=== PATIENT | male | born 1955 | race African-American/Black ===

== ENCOUNTER 2017-01-21 15:54 | Emergency (ER) | payer MEDICAID ==
[~2017-01-21] VITALS: Ht 170.2 cm; Wt 74.0 kg
[~2017-01-21 15:54] MED LIST: ASA; GABA-290 PO; METFORMIN; NAPROSYN; TRAMADOL
[2017-01-21] MEDS ORDERED: KETOROLAC 60MG/2ML VIAL IM ONE (19:15)
[2017-01-21] MEDS ORDERED: CYCLOBENZAPRINE 10MG TABLET PO ONE (19:30)
[2017-01-21 20:25] LABS: CLARITY URINE CLEAR (CLEAR); COLOR URINE YELLOW (YELLOW); GLUCOSE URINE TRACE (NEGATIVE); KETONES URINE NEGATIVE (NEGATIVE); LEUKOCYTE ESTERASE URINE NEGATIVE (NEGATIVE); NITRITE URINE NEGATIVE (NEGATIVE); OCCULT BLOOD URINE 1+ (NEGATIVE); PROTEIN URINE 3+ (NEGATIVE); SPECIFIC GRAVITY URINE 1.021 (1.005-1.030); UROBILINOGEN URINE 0.2 E.U./dL (0.2-1.0)
[2017-01-21 21:10] VITALS: BP 150/70
== END 2017-01-21 21:11 | disposition home or self-care (01) ==
LOC: ER 15:54
DX: M54.12 Radiculopathy, cervical region (principal); M54.16 Radiculopathy, lumbar region; E11.9 Type 2 diabetes mellitus without complications; I10 Essential (primary) hypertension
CPT/HCPCS: 74176; 81001; 96372; 99285; J1885

== ENCOUNTER 2017-08-01 12:00 | Emergency (ER) | payer MEDICAID ==
[~2017-08-01] VITALS: Ht 172.7 cm; Wt 80.0 kg
[2017-08-01 19:47] VITALS: BP 144/76
== END 2017-08-01 21:04 | disposition home or self-care (01) ==
LOC: ER 13:44
DX: Z48.01 Encounter for change or removal of surgical wound dressing (principal); M25.511 Pain in right shoulder; L29.9 Pruritus, unspecified; I10 Essential (primary) hypertension; E11.9 Type 2 diabetes mellitus without complications; Z79.84 Long term (current) use of oral hypoglycemic drugs
CPT/HCPCS: 99283

== ENCOUNTER 2018-04-19 20:38 | Inpatient (IN) | payer MEDICAID ==
[~2018-04-19] VITALS: Ht 162.6 cm; Wt 82.6 kg
[2018-04-19] MEDS ORDERED: SITA100T11 PO (21:25)
[2018-04-19] MEDS ORDERED: NAPR-681 PO (21:25)
[2018-04-19] MEDS ORDERED: HYDR-4001 PO (21:25)
[2018-04-19] MEDS ORDERED: CIPR500S3 MT (21:25)
[2018-04-19] MEDS ORDERED: GABA800T97 PO (21:25)
[2018-04-19] MEDS ORDERED: ACET500C42 PO (21:25)
[2018-04-19] MEDS ORDERED: CEPH500C2 PO (21:25)
[2018-04-19] MEDS ORDERED: CIPR3.5O RIGHTEYE (21:30)
[2018-04-19] MEDS ORDERED: KETO5DRO OP (21:30)
[2018-04-19 23:17] LABS: BASOPHILS % 1.3 % (0.0-2.0); EOSINOPHILS % 0.5 % (0.0-5.0); HEMATOCRIT. 39.5 % (42.0-52.0); HEMOGLOBIN. 13.6 g/dL (14.0-18.0); LYMPHOCYTES % 44.9 % (20.0-50.0); MEAN CORPUSCULAR HEMOGLOBIN 29.9 pg (28.0-32.0); MEAN CORPUSCULAR VOLUME 86.9 fL (80.0-94.0); MEAN PLATELET VOLUME 8.7 fl (7.4-10.4); MONOCYTES % 5.7 % (2.0-8.0); NEUTROPHILS % 47.6 % (40.0-76.0); PLATELET 228 x1000/uL (130-400); RED BLOOD CELL COUNT 4.54 mill/uL (4.7-6.1); RED CELL DISTRIBUTION WIDTH 13.2 % (11.6-14.6)
[2018-04-19 23:25] LABS: CLARITY URINE CLEAR (CLEAR); COLOR URINE YELLOW (YELLOW); KETONES URINE NEGATIVE (NEGATIVE); LEUKOCYTE ESTERASE URINE NEGATIVE (NEGATIVE); NITRITE URINE NEGATIVE (NEGATIVE); OCCULT BLOOD URINE TRACE (NEGATIVE); PROTEIN URINE 3+ (NEGATIVE); SPECIFIC GRAVITY URINE 1.011 (1.005-1.030)
[2018-04-19 23:25] LABS: CHLORIDE 108 mEq/L (98-107); ETHANOL BLOOD < 10 mg/dL
[2018-04-19 23:40] LABS: *AMPHETAMINES SCREEN URINE NEGATIVE (NEGATIVE); *BARBITURATES SCREEN URINE NEGATIVE (NEGATIVE); *BENZODIAZEPINES SCREEN URINE NEGATIVE (NEGATIVE); METHADONE URINE SCREEN NEGATIVE (NEGATIVE)
[2018-04-19 23:44] LABS: *COCAINE SCREEN URINE NEGATIVE (NEGATIVE); CANNABINOID URINE SCREEN NEGATIVE (NEGATIVE); OPIATES URINE SCREEN NEGATIVE (NEGATIVE); PHENCYCLIDINE URINE SCREEN NEGATIVE (NEGATIVE)
[2018-04-20] VITALS (58 sets, daily range): BP systolic 115–195; BP diastolic 45–120
[2018-04-20] MEDS ORDERED: ASPIRIN 300MG SUPP PR ONE (01:00)
[2018-04-20] MEDS ORDERED: CLONIDINE 0.1MG TABLET PO PRN (04:00)
[2018-04-20] MEDS ORDERED: CIPR500S3 PO (04:51)
[2018-04-20] MEDS: AMLODIPINE 10MG TABLET PO SCH ×2 (05:37→05:43)
[2018-04-20] MEDS: BENAZEPRIL 10MG TABLET PO SCH ×2 (05:38→05:43)
[2018-04-20] MEDS: HYDRALAZINE 20MG/ML VIAL IV PRN ×2 (06:22→11:27)
[2018-04-20] MEDS: BLOOD SUGAR DIAGNOSTIC STRIP TEST SCH ×4 (07:07→21:11)
[2018-04-20] MEDS: INSULIN LISPRO 100 UNITS/ML SUBCUT SCH ×4 (08:10→21:00)
[2018-04-20 09:32] LABS: BASOPHILS % 1.9 % (0.0-2.0); EOSINOPHILS % 0.4 % (0.0-5.0); HEMATOCRIT. 39.5 % (42.0-52.0); HEMOGLOBIN. 13.7 g/dL (14.0-18.0); LYMPHOCYTES % 30.6 % (20.0-50.0); MEAN CORPUSCULAR VOLUME 86.3 fL (80.0-94.0); MEAN PLATELET VOLUME 8.8 fl (7.4-10.4); MONOCYTES % 4.9 % (2.0-8.0); NEUTROPHILS % 62.2 % (40.0-76.0); PLATELET 214 x1000/uL (130-400); RED BLOOD CELL COUNT 4.57 mill/uL (4.7-6.1)
[2018-04-20 09:58] LABS: CHLORIDE 110 mEq/L (98-107)
[2018-04-20 10:05] LABS: HDL CHOLESTEROL 41 mg/dL (40-59); LDL CHOLESTEROL 153 mg/dL (5-100)
[2018-04-20 10:33] LABS: FOLIC ACID (FOLATE) SERUM 11.9 ng/mL (>5.38)
[2018-04-20] MEDS ORDERED: SODIUM CHLORIDE 0.45% 1,000 ML IV SCH (12:15)
[2018-04-20] MEDS ORDERED: KCL 20MEQ/100ML PREMIX 100 ML IV NR (13:00)
[2018-04-20] MEDS ORDERED: NICARDIPINE 50 MG in SODIUM CHLORIDE 0.9% 230 ML IV PRN (13:45)
[2018-04-20] MEDS: CLOPIDOGREL 75MG TABLET PO SCH (13:51)
[2018-04-20] MEDS: NITROPRUSSIDE 50 MG in DEXT 5% WATER 248 ML IV PRN (14:58)
[2018-04-20] MEDS: ACETAMINOPHEN 325MG TABLET PO PRN (17:57)
[2018-04-20] MEDS ORDERED: ONDANSETRON HCL 4MG/2ML INJ IV PRN (18:00)
[2018-04-20] MEDS: ATORVASTATIN CALCIUM 20MG TABLET PO SCH (21:00)
[2018-04-20] MEDS ORDERED: AMLODIPINE 5MG TABLET PO SCH (21:00)
[2018-04-20] MEDS ORDERED: METOPROLOL TARTRATE 25MG TABLET PO SCH ×2 (21:00)
[2018-04-20] MEDS: CLONIDINE 0.1MG TABLET PO SCH (21:12)
[2018-04-20] MEDS: SODIUM CHLORIDE 0.9% 1,000 ML IV SCH (21:15)
[2018-04-20] MEDS ORDERED: HYDRALAZINE 20MG/ML VIAL IV PRN (22:14)
[2018-04-21] VITALS (99 sets, daily range): BP systolic 102–187; BP diastolic 48–118
[2018-04-21] MEDS: BLOOD SUGAR DIAGNOSTIC STRIP TEST SCH ×4 (05:36→22:25)
[2018-04-21] MEDS: MORPHINE SULFATE 4 MG/ML CPJ (NOT FOR IM USE) IV PRN ×3 (05:42→21:25)
[2018-04-21] MEDS: INSULIN LISPRO 100 UNITS/ML SUBCUT SCH ×4 (05:43→22:25)
[2018-04-21] MEDS: CLONIDINE 0.1MG TABLET PO SCH ×3 (06:00→22:00)
[2018-04-21] MEDS: NITROPRUSSIDE 50 MG in DEXT 5% WATER 248 ML IV PRN (07:52)
[2018-04-21] MEDS: AMLODIPINE 5MG TABLET PO SCH (09:00)
[2018-04-21] MEDS: BENAZEPRIL 10MG TABLET PO SCH (09:00)
[2018-04-21] MEDS: CLOPIDOGREL 75MG TABLET PO SCH (09:44)
[2018-04-21] MEDS: METOPROLOL TARTRATE 50MG TABLET PO SCH ×2 (10:00→21:00)
[2018-04-21] MEDS: ENOXAPARIN 40MG/0.4ML SYR SUBCUT SCH (10:34)
[2018-04-21] MEDS: NITROPRUSSIDE 100 MG in DEXT 5% WATER 246 ML IV PRN ×2 (13:18→23:30)
[2018-04-21 15:58] LABS: BASOPHILS % 0.6 % (0.0-2.0); EOSINOPHILS % 0.1 % (0.0-5.0); HEMATOCRIT. 35.2 % (42.0-52.0); HEMOGLOBIN. 12.1 g/dL (14.0-18.0); LYMPHOCYTES % 30.3 % (20.0-50.0); MEAN CORPUSCULAR HEMOGLOBIN 29.8 pg (28.0-32.0); MEAN CORPUSCULAR VOLUME 86.4 fL (80.0-94.0); MEAN PLATELET VOLUME 8.7 fl (7.4-10.4); MONOCYTES % 7.3 % (2.0-8.0); NEUTROPHILS % 61.7 % (40.0-76.0); PLATELET 228 x1000/uL (130-400); RED BLOOD CELL COUNT 4.08 mill/uL (4.7-6.1); RED CELL DISTRIBUTION WIDTH 12.9 % (11.6-14.6)
[2018-04-21 16:05] LABS: INR 1.1; PROTHROMBIN TIME 10.6 sec (9.1-11.1)
[2018-04-21 16:06] LABS: CHLORIDE 112 mEq/L (98-107)
[2018-04-21] MEDS: SODIUM CHLORIDE 0.9% 1,000 ML IV SCH (18:19)
[2018-04-21] MEDS ORDERED: POTASSIUM PHOS,M-BASIC-D-BASIC 20 MMOL in DEXT 5% WATER 243.3333 ML IV NR (20:00)
[2018-04-21] MEDS: ATORVASTATIN CALCIUM 20MG TABLET PO SCH (21:00)
[2018-04-22] VITALS (97 sets, daily range): BP systolic 89–166; BP diastolic 43–121
[2018-04-22] MEDS: MORPHINE SULFATE 4 MG/ML CPJ (NOT FOR IM USE) IV PRN ×4 (03:57→19:54)
[2018-04-22 05:08] LABS: BASOPHILS % 0.9 % (0.0-2.0); EOSINOPHILS % 0.1 % (0.0-5.0); HEMATOCRIT. 34.2 % (42.0-52.0); HEMOGLOBIN. 11.7 g/dL (14.0-18.0); MEAN CORPUSCULAR HEMOGLOBIN 29.8 pg (28.0-32.0); MEAN CORPUSCULAR VOLUME 86.9 fL (80.0-94.0); MEAN PLATELET VOLUME 8.8 fl (7.4-10.4); MONOCYTES % 8.8 % (2.0-8.0); NEUTROPHILS % 60.2 % (40.0-76.0); PLATELET 224 x1000/uL (130-400); RED BLOOD CELL COUNT 3.94 mill/uL (4.7-6.1); RED CELL DISTRIBUTION WIDTH 13.2 % (11.6-14.6)
[2018-04-22 05:19] LABS: PHOSPHORUS 3.4 mg/dL (2.5-4.9)
[2018-04-22] MEDS: BLOOD SUGAR DIAGNOSTIC STRIP TEST SCH ×4 (06:30→20:52)
[2018-04-22] MEDS: NITROPRUSSIDE 100 MG in DEXT 5% WATER 246 ML IV PRN ×3 (06:38→20:42)
[2018-04-22] MEDS: INSULIN LISPRO 100 UNITS/ML SUBCUT SCH ×4 (08:05→20:52)
[2018-04-22] MEDS: ENOXAPARIN 40MG/0.4ML SYR SUBCUT SCH (08:05)
[2018-04-22] MEDS: CLOPIDOGREL 75MG TABLET PO SCH (09:00)
[2018-04-22] MEDS: METOPROLOL TARTRATE 50MG TABLET PO SCH ×2 (09:00→20:53)
[2018-04-22] MEDS: BENAZEPRIL 10MG TABLET PO SCH (09:00)
[2018-04-22] MEDS: AMLODIPINE 5MG TABLET PO SCH (09:00)
[2018-04-22] MEDS: TAMSULOSIN HCL 0.4MG SR CAPSULE PO SCH (09:30)
[2018-04-22] MEDS: CLONIDINE 0.1MG TABLET PO SCH ×2 (13:07→22:05)
[2018-04-22] MEDS ORDERED: LIDOCAINE HCL 2% JELLY 5ML TOP ONE (15:00)
[2018-04-22 15:58] LABS: CLARITY URINE CLEAR (CLEAR); COLOR URINE YELLOW (YELLOW); KETONES URINE TRACE (NEGATIVE); LEUKOCYTE ESTERASE URINE NEGATIVE (NEGATIVE); NITRITE URINE NEGATIVE (NEGATIVE); OCCULT BLOOD URINE 2+ (NEGATIVE); PROTEIN URINE 3+ (NEGATIVE); SPECIFIC GRAVITY URINE 1.016 (1.005-1.030); UROBILINOGEN URINE 0.2 E.U./dL (0.2-1.0)
[2018-04-22] MEDS: SODIUM CHLORIDE 0.9% 1,000 ML IV SCH (18:36)
[2018-04-22] MEDS: ATORVASTATIN CALCIUM 20MG TABLET PO SCH (20:53)
[2018-04-22] MEDS: INSULIN GLARGINE UD 100 UNITS/ML SYR SUBCUT SCH (22:05)
[2018-04-23] VITALS (100 sets, daily range): BP systolic 98–185; BP diastolic 22–102
[2018-04-23] MEDS: MORPHINE SULFATE 4 MG/ML CPJ (NOT FOR IM USE) IV PRN ×3 (00:31→12:29)
[2018-04-23] MEDS: NITROPRUSSIDE 100 MG in DEXT 5% WATER 246 ML IV PRN ×4 (02:21→22:25)
[2018-04-23 05:37] LABS: BASOPHILS % 0.5 % (0.0-2.0); EOSINOPHILS % 0.2 % (0.0-5.0); HEMATOCRIT. 30.5 % (42.0-52.0); HEMOGLOBIN. 10.7 g/dL (14.0-18.0); LYMPHOCYTES % 23.2 % (20.0-50.0); MEAN CORPUSCULAR HEMOGLOBIN 30.1 pg (28.0-32.0); MEAN CORPUSCULAR VOLUME 85.9 fL (80.0-94.0); MEAN PLATELET VOLUME 8.9 fl (7.4-10.4); MONOCYTES % 8.5 % (2.0-8.0); NEUTROPHILS % 67.6 % (40.0-76.0); PLATELET 208 x1000/uL (130-400); RED BLOOD CELL COUNT 3.55 mill/uL (4.7-6.1)
[2018-04-23 05:50] LABS: CHLORIDE 110 mEq/L (98-107)
[2018-04-23 05:58] LABS: PHOSPHORUS 2.9 mg/dL (2.5-4.9)
[2018-04-23] MEDS: CLONIDINE 0.1MG TABLET PO SCH ×3 (06:08→21:05)
[2018-04-23] MEDS: BLOOD SUGAR DIAGNOSTIC STRIP TEST SCH ×5 (06:08→21:13)
[2018-04-23] MEDS: INSULIN LISPRO 100 UNITS/ML SUBCUT SCH ×4 (06:13→21:13)
[2018-04-23] MEDS: TAMSULOSIN HCL 0.4MG SR CAPSULE PO SCH (09:00)
[2018-04-23] MEDS: FINASTERIDE 5MG TABLET PO SCH (09:00)
[2018-04-23] MEDS: AMLODIPINE 5MG TABLET PO SCH (09:00)
[2018-04-23] MEDS: METOPROLOL TARTRATE 50MG TABLET PO SCH ×2 (09:00→21:05)
[2018-04-23] MEDS: BENAZEPRIL 10MG TABLET PO SCH (09:00)
[2018-04-23] MEDS: ENOXAPARIN 40MG/0.4ML SYR SUBCUT SCH (09:56)
[2018-04-23] MEDS: SODIUM CHLORIDE 0.9% 1,000 ML IV SCH (13:43)
[2018-04-23] MEDS: CLOPIDOGREL 75MG TABLET PO SCH (13:45)
[2018-04-23 15:50] LABS: BG BASE EXCESS -6.2 mmol/L (-2.0-2.0); BG CARBOXYHEMOGLOBIN 0.3 % (0.5-1.5); BG DEOXYHEMOGLOBIN 3.4 % (0.0-5.0); BG FRACTION INSPIRED OXYGEN 21; BG HCO3 ACT 18.3 mmol/L (22.0-26.0); BG METHEMOGLOBIN 0.5 % (0.0-1.5); BG OXYGEN SATURATION 96.6 % (92.0-98.5); BG OXYHEMOGLOBIN 95.8 % (94.0-97.0); BG PCO2 32.3 mmHg (35.0-45.0); BG PO2 90.7 mmHg (75.0-100.0); BG SAMPLE SITE LEFT BRACHIAL; BG TOTAL HEMOGLOBIN 10.7 g/dL (12.0-18.0); BG VENT MODE ROOM AIR
[2018-04-23] MEDS ORDERED: KCL 20MEQ/100ML PREMIX 100 ML IV NR (17:00)
[2018-04-23] MEDS ORDERED: MAGNESIUM 2 G PREMIX 50 ML IV NR (17:00)
[2018-04-23] MEDS: ATORVASTATIN CALCIUM 20MG TABLET PO SCH (21:05)
[2018-04-23] MEDS: INSULIN GLARGINE UD 100 UNITS/ML SYR SUBCUT SCH (21:13)
[2018-04-24] VITALS (78 sets, daily range): BP systolic 116–213; BP diastolic 36–135
[2018-04-24] MEDS: MORPHINE SULFATE 4 MG/ML CPJ (NOT FOR IM USE) IV PRN ×3 (01:02→19:45)
[2018-04-24 04:28] LABS: CLARITY URINE CLOUDY (CLEAR); COLOR URINE ORANGE (YELLOW); KETONES URINE NEGATIVE (NEGATIVE); LEUKOCYTE ESTERASE URINE TRACE (NEGATIVE); NITRITE URINE NEGATIVE (NEGATIVE); OCCULT BLOOD URINE 3+ (NEGATIVE); PROTEIN URINE 2+ (NEGATIVE); SPECIFIC GRAVITY URINE 1.011 (1.005-1.030)
[2018-04-24] MEDS: CLONIDINE 0.1MG TABLET PO SCH ×3 (05:36→22:00)
[2018-04-24] MEDS: BLOOD SUGAR DIAGNOSTIC STRIP TEST SCH ×4 (05:46→21:00)
[2018-04-24] MEDS: INSULIN LISPRO 100 UNITS/ML SUBCUT SCH ×4 (06:05→21:00)
[2018-04-24] MEDS: SODIUM CHLORIDE 0.9% 1,000 ML IV SCH ×2 (06:55→15:48)
[2018-04-24] MEDS: BENAZEPRIL 10MG TABLET PO SCH ×2 (09:00→16:14)
[2018-04-24] MEDS: FINASTERIDE 5MG TABLET PO SCH ×2 (09:00→16:13)
[2018-04-24] MEDS: AMLODIPINE 5MG TABLET PO SCH ×2 (09:00→16:13)
[2018-04-24] MEDS: METOPROLOL TARTRATE 50MG TABLET PO SCH ×2 (09:00→21:00)
[2018-04-24] MEDS: CLOPIDOGREL 75MG TABLET PO SCH (09:00)
[2018-04-24] MEDS: TAMSULOSIN HCL 0.4MG SR CAPSULE PO SCH ×2 (09:00→16:13)
[2018-04-24 09:28] LABS: BASOPHILS % 1.2 % (0.0-2.0); EOSINOPHILS % 0.8 % (0.0-5.0); HEMATOCRIT. 28.6 % (42.0-52.0); HEMOGLOBIN. 10.1 g/dL (14.0-18.0); LYMPHOCYTES % 38.4 % (20.0-50.0); MEAN CORPUSCULAR HEMOGLOBIN 30.5 pg (28.0-32.0); MEAN CORPUSCULAR VOLUME 86.5 fL (80.0-94.0); MEAN PLATELET VOLUME 8.2 fl (7.4-10.4); MONOCYTES % 11.5 % (2.0-8.0); NEUTROPHILS % 48.1 % (40.0-76.0); PLATELET 196 x1000/uL (130-400); RED CELL DISTRIBUTION WIDTH 13.2 % (11.6-14.6)
[2018-04-24 11:19] LABS: CHLORIDE 115 mEq/L (98-107)
[2018-04-24] MEDS: ENOXAPARIN 40MG/0.4ML SYR SUBCUT SCH (14:20)
[2018-04-24] MEDS: NITROPRUSSIDE 100 MG in DEXT 5% WATER 246 ML IV PRN (14:20)
[2018-04-24] MEDS ORDERED: POTASSIUM PHOS,M-BASIC-D-BASIC 20 MMOL in DEXT 5% WATER 243.3333 ML IV NR (17:00)
[2018-04-24] MEDS: ATORVASTATIN CALCIUM 20MG TABLET PO SCH (21:00)
[2018-04-24] MEDS: INSULIN GLARGINE UD 100 UNITS/ML SYR SUBCUT SCH (22:00)
[2018-04-25] VITALS (72 sets, daily range): BP systolic 98–200; BP diastolic 25–108
[2018-04-25] MEDS: NITROPRUSSIDE 100 MG in DEXT 5% WATER 246 ML IV PRN ×4 (01:54→22:15)
[2018-04-25] MEDS: MORPHINE SULFATE 4 MG/ML CPJ (NOT FOR IM USE) IV PRN (02:03)
[2018-04-25] MEDS: CLONIDINE 0.1MG TABLET PO SCH ×3 (06:00→22:15)
[2018-04-25] MEDS: SODIUM CHLORIDE 0.9% 1,000 ML IV SCH ×2 (06:07→16:59)
[2018-04-25] MEDS: INSULIN LISPRO 100 UNITS/ML SUBCUT SCH ×5 (06:08→21:00)
[2018-04-25] MEDS: BLOOD SUGAR DIAGNOSTIC STRIP TEST SCH ×5 (06:08→21:00)
[2018-04-25] MEDS: AMLODIPINE 5MG TABLET PO SCH (09:00)
[2018-04-25] MEDS: FINASTERIDE 5MG TABLET PO SCH (09:00)
[2018-04-25] MEDS: BENAZEPRIL 10MG TABLET PO SCH (09:00)
[2018-04-25] MEDS: ENOXAPARIN 40MG/0.4ML SYR SUBCUT SCH (09:00)
[2018-04-25] MEDS: METOPROLOL TARTRATE 50MG TABLET PO SCH ×2 (09:00→22:16)
[2018-04-25] MEDS: TAMSULOSIN HCL 0.4MG SR CAPSULE PO SCH (09:00)
[2018-04-25] MEDS: CLOPIDOGREL 75MG TABLET PO SCH (09:00)
[2018-04-25 10:44] LABS: BASOPHILS % 0.4 % (0.0-2.0); EOSINOPHILS % 0.1 % (0.0-5.0); HEMATOCRIT. 29.8 % (42.0-52.0); HEMOGLOBIN. 10.2 g/dL (14.0-18.0); LYMPHOCYTES % 14.7 % (20.0-50.0); MEAN CORPUSCULAR VOLUME 87.5 fL (80.0-94.0); MEAN PLATELET VOLUME 9.1 fl (7.4-10.4); MONOCYTES % 6.9 % (2.0-8.0); NEUTROPHILS % 77.9 % (40.0-76.0); PLATELET 218 x1000/uL (130-400); RED CELL DISTRIBUTION WIDTH 12.9 % (11.6-14.6)
[2018-04-25 11:13] LABS: CHLORIDE 111 mEq/L (98-107)
[2018-04-25 11:24] LABS: PHOSPHORUS 3.5 mg/dL (2.5-4.9)
[2018-04-25] MEDS ORDERED: CLONIDINE HCL 0.2MG/24HR PATCH TD SCH (12:00)
[2018-04-25 14:38] LABS: CLARITY URINE CLEAR (CLEAR); COLOR URINE YELLOW (YELLOW); KETONES URINE NEGATIVE (NEGATIVE); LEUKOCYTE ESTERASE URINE TRACE (NEGATIVE); NITRITE URINE NEGATIVE (NEGATIVE); OCCULT BLOOD URINE 3+ (NEGATIVE); PROTEIN URINE 2+ (NEGATIVE); SPECIFIC GRAVITY URINE 1.013 (1.005-1.030)
[2018-04-25] MEDS: DOCUSATE SODIUM SUGAR FREE 100MG/10ML UDC NG SCH (17:00)
[2018-04-25] MEDS: INSULIN GLARGINE UD 100 UNITS/ML SYR SUBCUT SCH (22:00)
[2018-04-25] MEDS: ATORVASTATIN CALCIUM 20MG TABLET PO SCH (22:15)
[2018-04-26] VITALS (78 sets, daily range): BP systolic 91–190; BP diastolic 28–111
[2018-04-26] MEDS: NITROPRUSSIDE 100 MG in DEXT 5% WATER 246 ML IV PRN ×3 (04:51→18:36)
[2018-04-26] MEDS: SODIUM CHLORIDE 0.9% 1,000 ML IV SCH (05:34)
[2018-04-26] MEDS: CLONIDINE 0.1MG TABLET PO SCH ×3 (06:00→22:32)
[2018-04-26 06:21] LABS: HEMOGLOBIN. 11.2 g/dL (14.0-18.0); RED BLOOD CELL COUNT 3.69 mill/uL (4.7-6.1)
[2018-04-26 06:22] LABS: BASOPHILS % 0.4 % (0.0-2.0); LYMPHOCYTES % 33.7 % (20.0-50.0); MEAN CORPUSCULAR HEMOGLOBIN 30.2 pg (28.0-32.0); MEAN CORPUSCULAR VOLUME 86.8 fL (80.0-94.0); MEAN PLATELET VOLUME 8.3 fl (7.4-10.4); MONOCYTES % 9.5 % (2.0-8.0); NEUTROPHILS % 55.4 % (40.0-76.0); PLATELET 245 x1000/uL (130-400)
[2018-04-26] MEDS: BLOOD SUGAR DIAGNOSTIC STRIP TEST SCH ×4 (06:30→21:00)
[2018-04-26] MEDS: INSULIN LISPRO 100 UNITS/ML SUBCUT SCH ×5 (07:00→21:52)
[2018-04-26 08:29] LABS: CHLORIDE 113 mEq/L (98-107)
[2018-04-26] MEDS: FINASTERIDE 5MG TABLET PO SCH (08:48)
[2018-04-26] MEDS: TAMSULOSIN HCL 0.4MG SR CAPSULE PO SCH ×2 (08:48→09:00)
[2018-04-26] MEDS: DOCUSATE SODIUM SUGAR FREE 100MG/10ML UDC NG SCH ×2 (08:48→13:20)
[2018-04-26] MEDS: CLOPIDOGREL 75MG TABLET PO SCH (08:48)
[2018-04-26] MEDS: METOPROLOL TARTRATE 50MG TABLET PO SCH ×2 (08:48→21:51)
[2018-04-26] MEDS: BENAZEPRIL 10MG TABLET PO SCH (08:49)
[2018-04-26] MEDS: AMLODIPINE 5MG TABLET PO SCH ×2 (08:49→16:38)
[2018-04-26] MEDS: ENOXAPARIN 40MG/0.4ML SYR SUBCUT SCH (08:53)
[2018-04-26] MEDS ORDERED: DILTIAZEM HCL 30MG TABLET PO SCH (10:15)
[2018-04-26] MEDS: DILTIAZEM HCL 5MG/ML 5ML VIAL IV PRN (13:04)
[2018-04-26] MEDS: ENALAPRIL 2.5MG/2ML VIAL 2ML IV PRN (17:57)
[2018-04-26] MEDS ORDERED: KCL 20MEQ/100ML PREMIX 100 ML IV NR (20:00)
[2018-04-26] MEDS: ATORVASTATIN CALCIUM 20MG TABLET PO SCH (21:51)
[2018-04-26] MEDS: INSULIN GLARGINE UD 100 UNITS/ML SYR SUBCUT SCH (22:32)
[2018-04-26] MEDS: NITROGLYCERIN OINT 1GM/INCH UDPKT TD SCH (22:33)
[2018-04-27] VITALS (90 sets, daily range): BP systolic 116–208; BP diastolic 45–141
[2018-04-27] MEDS: SODIUM CHLORIDE 0.9% 1,000 ML IV SCH ×3 (02:27→22:04)
[2018-04-27] MEDS: ENALAPRIL 2.5MG/2ML VIAL 2ML IV PRN ×2 (03:10→10:22)
[2018-04-27] MEDS: BLOOD SUGAR DIAGNOSTIC STRIP TEST SCH ×3 (05:35→21:00)
[2018-04-27] MEDS: INSULIN LISPRO 100 UNITS/ML SUBCUT SCH ×4 (05:35→21:00)
[2018-04-27 05:39] LABS: CHLORIDE 115 mEq/L (98-107)
[2018-04-27] MEDS: NITROGLYCERIN OINT 1GM/INCH UDPKT TD SCH ×3 (05:42→21:03)
[2018-04-27] MEDS: CLONIDINE 0.1MG TABLET PO SCH ×3 (05:42→20:52)
[2018-04-27 05:52] LABS: PHOSPHORUS 2.3 mg/dL (2.5-4.9)
[2018-04-27] MEDS: DOCUSATE SODIUM SUGAR FREE 100MG/10ML UDC NG SCH ×2 (08:12→16:45)
[2018-04-27] MEDS: BENAZEPRIL 10MG TABLET PO SCH ×2 (08:22→08:51)
[2018-04-27] MEDS: CLOPIDOGREL 75MG TABLET PO SCH ×2 (08:22→08:51)
[2018-04-27] MEDS: ENOXAPARIN 40MG/0.4ML SYR SUBCUT SCH (08:22)
[2018-04-27] MEDS: FINASTERIDE 5MG TABLET PO SCH ×2 (08:29→08:51)
[2018-04-27] MEDS: TAMSULOSIN HCL 0.4MG SR CAPSULE PO SCH (08:50)
[2018-04-27] MEDS: AMLODIPINE 5MG TABLET PO SCH ×2 (09:00→17:00)
[2018-04-27] MEDS: METOPROLOL TARTRATE 50MG TABLET PO SCH ×2 (09:00→21:00)
[2018-04-27 09:37] LABS: BASOPHILS % 0.5 % (0.0-2.0); EOSINOPHILS % 2.5 % (0.0-5.0); HEMATOCRIT. 28.4 % (42.0-52.0); LYMPHOCYTES % 36.7 % (20.0-50.0); MEAN CORPUSCULAR HEMOGLOBIN 30.8 pg (28.0-32.0); MEAN CORPUSCULAR VOLUME 87.2 fL (80.0-94.0); MEAN PLATELET VOLUME 8.6 fl (7.4-10.4); MONOCYTES % 8.9 % (2.0-8.0); NEUTROPHILS % 51.4 % (40.0-76.0); PLATELET 223 x1000/uL (130-400); RED BLOOD CELL COUNT 3.26 mill/uL (4.7-6.1); RED CELL DISTRIBUTION WIDTH 13.2 % (11.6-14.6)
[2018-04-27] MEDS ORDERED: POTASSIUM PHOS,M-BASIC-D-BASIC 30 MMOL in SODIUM CHLORIDE 0.9% 500 ML IV SCH (12:00)
[2018-04-27] MEDS: LEVETIRACETAM 250 MG in SODIUM CHLORIDE 0.9% 100 ML IV SCH (16:51)
[2018-04-27] MEDS: DOXAZOSIN MESYLATE 2MG TABLET PO SCH (20:51)
[2018-04-27] MEDS: ATORVASTATIN CALCIUM 20MG TABLET PO SCH (20:51)
[2018-04-27] MEDS: MORPHINE SULFATE 4 MG/ML CPJ (NOT FOR IM USE) IV PRN (20:51)
[2018-04-27] MEDS: INSULIN GLARGINE UD 100 UNITS/ML SYR SUBCUT SCH (22:00)
[2018-04-28] VITALS (70 sets, daily range): BP systolic 95–195; BP diastolic 43–116
[2018-04-28] MEDS: NITROPRUSSIDE 100 MG in DEXT 5% WATER 246 ML IV PRN (00:07)
[2018-04-28] MEDS: ENALAPRIL 2.5MG/2ML VIAL 2ML IV PRN ×3 (01:49→15:31)
[2018-04-28] MEDS: MORPHINE SULFATE 4 MG/ML CPJ (NOT FOR IM USE) IV PRN ×2 (02:16→08:20)
[2018-04-28] MEDS: LEVETIRACETAM 250 MG in SODIUM CHLORIDE 0.9% 100 ML IV SCH ×2 (04:05→15:32)
[2018-04-28] MEDS: NITROGLYCERIN OINT 1GM/INCH UDPKT TD SCH ×3 (05:14→21:51)
[2018-04-28] MEDS: CLONIDINE 0.1MG TABLET PO SCH ×4 (05:14→22:00)
[2018-04-28 05:33] LABS: BASOPHILS % 0.6 % (0.0-2.0); EOSINOPHILS % 2.4 % (0.0-5.0); HEMATOCRIT. 30.6 % (42.0-52.0); HEMOGLOBIN. 10.9 g/dL (14.0-18.0); MEAN CORPUSCULAR HEMOGLOBIN 30.8 pg (28.0-32.0); MEAN CORPUSCULAR VOLUME 86.2 fL (80.0-94.0); MEAN PLATELET VOLUME 8.4 fl (7.4-10.4); MONOCYTES % 9.9 % (2.0-8.0); NEUTROPHILS % 52.1 % (40.0-76.0); PLATELET 214 x1000/uL (130-400); RED BLOOD CELL COUNT 3.55 mill/uL (4.7-6.1); RED CELL DISTRIBUTION WIDTH 12.9 % (11.6-14.6)
[2018-04-28 05:52] LABS: CHLORIDE 110 mEq/L (98-107)
[2018-04-28] MEDS: BLOOD SUGAR DIAGNOSTIC STRIP TEST SCH ×4 (06:30→21:00)
[2018-04-28] MEDS: INSULIN LISPRO 100 UNITS/ML SUBCUT SCH ×4 (06:45→22:11)
[2018-04-28] MEDS: DOCUSATE SODIUM SUGAR FREE 100MG/10ML UDC NG SCH ×2 (08:03→17:00)
[2018-04-28] MEDS: FINASTERIDE 5MG TABLET PO SCH (08:07)
[2018-04-28] MEDS: CLOPIDOGREL 75MG TABLET PO SCH (08:07)
[2018-04-28] MEDS: BENAZEPRIL 10MG TABLET PO SCH ×3 (08:07→21:41)
[2018-04-28] MEDS: ENOXAPARIN 40MG/0.4ML SYR SUBCUT SCH (08:08)
[2018-04-28] MEDS: AMLODIPINE 5MG TABLET PO SCH ×2 (08:31→17:40)
[2018-04-28] MEDS: METOPROLOL TARTRATE 50MG TABLET PO SCH (08:31)
[2018-04-28] MEDS ORDERED: POTASSIUM PHOS,M-BASIC-D-BASIC 30 MMOL in DEXT 5% WATER 500 ML IV SCH (10:00)
[2018-04-28] MEDS: SODIUM CHLORIDE 0.9% 1,000 ML IV SCH ×2 (12:57→22:37)
[2018-04-28] MEDS: ATORVASTATIN CALCIUM 20MG TABLET PO SCH ×2 (21:00→21:40)
[2018-04-28] MEDS: DOXAZOSIN MESYLATE 2MG TABLET PO SCH ×2 (21:00→21:40)
[2018-04-28] MEDS: NITROPRUSSIDE 100 MG in SODIUM CHLORIDE 0.9% 246 ML IV PRN (22:06)
[2018-04-28] MEDS: INSULIN GLARGINE UD 100 UNITS/ML SYR SUBCUT SCH (22:11)
[2018-04-29] VITALS (93 sets, daily range): BP systolic 89–256; BP diastolic 38–141
[2018-04-29] MEDS: MORPHINE SULFATE 4 MG/ML CPJ (NOT FOR IM USE) IV PRN (02:10)
[2018-04-29] MEDS: LEVETIRACETAM 250 MG in SODIUM CHLORIDE 0.9% 100 ML IV SCH ×2 (05:10→17:27)
[2018-04-29 05:11] LABS: BASOPHILS % 0.6 % (0.0-2.0); EOSINOPHILS % 1.3 % (0.0-5.0); HEMOGLOBIN. 10.3 g/dL (14.0-18.0); LYMPHOCYTES % 30.1 % (20.0-50.0); MEAN CORPUSCULAR HEMOGLOBIN 30.7 pg (28.0-32.0); MEAN CORPUSCULAR VOLUME 86.9 fL (80.0-94.0); MEAN PLATELET VOLUME 8.1 fl (7.4-10.4); MONOCYTES % 9.8 % (2.0-8.0); NEUTROPHILS % 58.2 % (40.0-76.0); PLATELET 221 x1000/uL (130-400); RED BLOOD CELL COUNT 3.34 mill/uL (4.7-6.1); RED CELL DISTRIBUTION WIDTH 13.2 % (11.6-14.6)
[2018-04-29] MEDS: NITROGLYCERIN OINT 1GM/INCH UDPKT TD SCH ×4 (05:12→22:38)
[2018-04-29 05:19] LABS: CHLORIDE 111 mEq/L (98-107)
[2018-04-29] MEDS: NITROPRUSSIDE 100 MG in SODIUM CHLORIDE 0.9% 246 ML IV PRN (05:19)
[2018-04-29] MEDS: BLOOD SUGAR DIAGNOSTIC STRIP TEST SCH ×3 (06:30→16:30)
[2018-04-29] MEDS: INSULIN LISPRO 100 UNITS/ML SUBCUT SCH ×3 (07:00→19:46)
[2018-04-29] MEDS: AMLODIPINE 5MG TABLET PO SCH ×2 (07:21→17:00)
[2018-04-29] MEDS: BENAZEPRIL 10MG TABLET PO SCH ×2 (07:21→20:22)
[2018-04-29] MEDS: CLONIDINE 0.1MG TABLET PO SCH ×3 (07:21→22:38)
[2018-04-29] MEDS: DOCUSATE SODIUM SUGAR FREE 100MG/10ML UDC NG SCH ×2 (07:52→17:00)
[2018-04-29] MEDS: CLONIDINE HCL 0.3MG/24HR PATCH TD SCH (07:54)
[2018-04-29] MEDS ORDERED: MORPHINE SULFATE 4 MG/ML CPJ (NOT FOR IM USE) IV SCH (08:15)
[2018-04-29] MEDS ORDERED: KCL 20MEQ/100ML PREMIX 100 ML IV NR (08:30)
[2018-04-29] MEDS ORDERED: MORPHINE SULFATE 10 MG/ML CPJ IM ONE (08:30)
[2018-04-29 08:34] LABS: PHOSPHORUS 3.2 mg/dL (2.5-4.9)
[2018-04-29] MEDS: ENOXAPARIN 40MG/0.4ML SYR SUBCUT SCH (09:00)
[2018-04-29] MEDS ORDERED: HYDROMORPHONE HCL/PF 2MG/ML CPJ IM SCH (09:15)
[2018-04-29] MEDS: FINASTERIDE 5MG TABLET PO SCH (10:08)
[2018-04-29] MEDS ORDERED: HALOPERIDOL LACTATE 5MG/ML VIAL IM SCH (10:15)
[2018-04-29] MEDS: CLOPIDOGREL 75MG TABLET PO SCH (13:59)
[2018-04-29] MEDS ORDERED: POTASSIUM CHLORIDE 20MEQ/PACKET PO SCH (14:30)
[2018-04-29] MEDS ORDERED: HYDROMORPHONE HCL/PF 2MG/ML CPJ IM NR (15:45)
[2018-04-29] MEDS: ENALAPRIL 2.5MG/2ML VIAL 2ML IV PRN (17:27)
[2018-04-29] MEDS: HALOPERIDOL LACTATE 5MG/ML VIAL IM PRN (18:08)
[2018-04-29] MEDS: ATORVASTATIN CALCIUM 20MG TABLET PO SCH (20:22)
[2018-04-29] MEDS: DOXAZOSIN MESYLATE 2MG TABLET PO SCH (20:23)
[2018-04-29] MEDS: SODIUM CHLORIDE 0.9% 1,000 ML IV SCH (21:32)
[2018-04-29] MEDS: INSULIN GLARGINE UD 100 UNITS/ML SYR SUBCUT SCH (22:39)
[2018-04-30] VITALS (94 sets, daily range): BP systolic 129–185; BP diastolic 61–123
[2018-04-30] MEDS: INSULIN LISPRO 100 UNITS/ML SUBCUT SCH ×4 (00:22→18:03)
[2018-04-30] MEDS: NITROPRUSSIDE 100 MG in SODIUM CHLORIDE 0.9% 246 ML IV PRN ×3 (00:24→13:56)
[2018-04-30] MEDS: LEVETIRACETAM 250 MG in SODIUM CHLORIDE 0.9% 100 ML IV SCH ×2 (04:57→17:00)
[2018-04-30] MEDS: NITROGLYCERIN OINT 1GM/INCH UDPKT TD SCH ×3 (05:26→21:15)
[2018-04-30] MEDS: CLONIDINE 0.1MG TABLET PO SCH ×3 (05:26→21:14)
[2018-04-30] MEDS: HALOPERIDOL LACTATE 5MG/ML VIAL IM PRN ×2 (05:27→22:00)
[2018-04-30] MEDS: BLOOD SUGAR DIAGNOSTIC STRIP TEST SCH ×4 (05:52→18:02)
[2018-04-30 06:03] LABS: CHLORIDE 113 mEq/L (98-107)
[2018-04-30 06:08] LABS: BASOPHILS % 0.5 % (0.0-2.0); EOSINOPHILS % 0.7 % (0.0-5.0); HEMATOCRIT. 29.6 % (42.0-52.0); LYMPHOCYTES % 25.4 % (20.0-50.0); MEAN CORPUSCULAR HEMOGLOBIN 30.9 pg (28.0-32.0); MEAN CORPUSCULAR VOLUME 91.6 fL (80.0-94.0); MEAN PLATELET VOLUME 8.9 fl (7.4-10.4); MONOCYTES % 9.9 % (2.0-8.0); NEUTROPHILS % 63.5 % (40.0-76.0); PLATELET 177 x1000/uL (130-400); RED BLOOD CELL COUNT 3.24 mill/uL (4.7-6.1); RED CELL DISTRIBUTION WIDTH 13.2 % (11.6-14.6)
[2018-04-30 06:17] LABS: PHOSPHORUS 1.8 mg/dL (2.5-4.9)
[2018-04-30] MEDS: DOCUSATE SODIUM SUGAR FREE 100MG/10ML UDC NG SCH ×2 (09:15→17:00)
[2018-04-30] MEDS: FINASTERIDE 5MG TABLET PO SCH (09:16)
[2018-04-30] MEDS: BENAZEPRIL 10MG TABLET PO SCH ×2 (09:16→20:52)
[2018-04-30] MEDS: CLOPIDOGREL 75MG TABLET PO SCH (09:16)
[2018-04-30] MEDS: AMLODIPINE 5MG TABLET PO SCH ×2 (09:16→17:00)
[2018-04-30] MEDS: ENOXAPARIN 40MG/0.4ML SYR SUBCUT SCH (09:17)
[2018-04-30] MEDS ORDERED: POTASSIUM-SODIUM PHOSPHATE POWDER PACKET PO SCH (10:30)
[2018-04-30] MEDS: METOPROLOL TARTRATE 50MG TABLET PO SCH ×2 (11:03→20:53)
[2018-04-30] MEDS: SODIUM CHLORIDE 0.9% 1,000 ML IV SCH (11:03)
[2018-04-30] MEDS: RISPERIDONE 1MG TABLET PO SCH ×2 (11:04→20:51)
[2018-04-30] MEDS: HYDRALAZINE 20MG/ML VIAL IV PRN (17:20)
[2018-04-30] MEDS ORDERED: NITROPRUSSIDE 100 MG in SODIUM CHLORIDE 0.9% 246 ML IV PRN (17:40)
[2018-04-30] MEDS: ENALAPRIL 2.5MG/2ML VIAL 2ML IV PRN (18:12)
[2018-04-30] MEDS: ACETAMINOPHEN 325MG TABLET PO PRN (18:13)
[2018-04-30] MEDS: ATORVASTATIN CALCIUM 20MG TABLET PO SCH (20:51)
[2018-04-30] MEDS: DOXAZOSIN MESYLATE 2MG TABLET PO SCH (20:52)
[2018-04-30] MEDS: INSULIN GLARGINE UD 100 UNITS/ML SYR SUBCUT SCH (21:16)
[2018-05-01] VITALS (87 sets, daily range): BP systolic 114–209; BP diastolic 52–113
[2018-05-01] MEDS ORDERED: DEXT 5%/0.45% NACL 500ML 1,000 ML IV SCH (00:45)
[2018-05-01] MEDS: SODIUM CHLORIDE 0.9% 1,000 ML IV SCH ×2 (00:50→15:21)
[2018-05-01] MEDS: BLOOD SUGAR DIAGNOSTIC STRIP TEST SCH ×5 (00:55→23:48)
[2018-05-01] MEDS ORDERED: DEXT 5%/0.45% NACL KCL 20MEQ/L 1,000 ML IV SCH (02:00)
[2018-05-01] MEDS: HYDRALAZINE 20MG/ML VIAL IV PRN (02:04)
[2018-05-01] MEDS ORDERED: MORPHINE SULFATE 4 MG/ML CPJ (NOT FOR IM USE) IV PRN (03:45)
[2018-05-01] MEDS: LEVETIRACETAM 250 MG in SODIUM CHLORIDE 0.9% 100 ML IV SCH ×2 (04:47→17:16)
[2018-05-01] MEDS: CLONIDINE 0.1MG TABLET PO SCH (05:33)
[2018-05-01] MEDS: NITROGLYCERIN OINT 1GM/INCH UDPKT TD SCH ×3 (05:33→22:00)
[2018-05-01] MEDS: INSULIN LISPRO 100 UNITS/ML SUBCUT SCH ×5 (05:42→23:48)
[2018-05-01 05:46] LABS: BASOPHILS % 0.9 % (0.0-2.0); EOSINOPHILS % 1.4 % (0.0-5.0); HEMOGLOBIN. 9.7 g/dL (14.0-18.0); LYMPHOCYTES % 23.9 % (20.0-50.0); MEAN CORPUSCULAR HEMOGLOBIN 30.9 pg (28.0-32.0); MEAN PLATELET VOLUME 8.8 fl (7.4-10.4); MONOCYTES % 8.9 % (2.0-8.0); NEUTROPHILS % 64.9 % (40.0-76.0); PLATELET 227 x1000/uL (130-400); RED BLOOD CELL COUNT 3.14 mill/uL (4.7-6.1); RED CELL DISTRIBUTION WIDTH 13.2 % (11.6-14.6)
[2018-05-01 05:57] LABS: CHLORIDE 116 mEq/L (98-107)
[2018-05-01 06:09] LABS: PHOSPHORUS 2.4 mg/dL (2.5-4.9)
[2018-05-01] MEDS: DILTIAZEM HCL 5MG/ML 5ML VIAL IV PRN (07:39)
[2018-05-01] MEDS: BENAZEPRIL 10MG TABLET PO SCH ×2 (08:43→20:10)
[2018-05-01] MEDS: METOPROLOL TARTRATE 50MG TABLET PO SCH ×2 (08:43→20:14)
[2018-05-01] MEDS: FINASTERIDE 5MG TABLET PO SCH (08:43)
[2018-05-01] MEDS: DOCUSATE SODIUM SUGAR FREE 100MG/10ML UDC NG SCH ×2 (08:44→17:16)
[2018-05-01] MEDS: ENOXAPARIN 40MG/0.4ML SYR SUBCUT SCH (08:45)
[2018-05-01] MEDS: CLOPIDOGREL 75MG TABLET PO SCH (08:45)
[2018-05-01] MEDS: RISPERIDONE 1MG TABLET PO SCH ×2 (08:46→20:07)
[2018-05-01] MEDS: AMLODIPINE 5MG TABLET PO SCH ×2 (08:51→17:16)
[2018-05-01] MEDS: HYDRALAZINE HCL 100MG TABLET PO SCH ×3 (10:18→21:21)
[2018-05-01 10:38] LABS: BG BASE EXCESS -2.1 mmol/L (-2.0-2.0); BG CARBOXYHEMOGLOBIN 0.3 % (0.5-1.5); BG DEOXYHEMOGLOBIN 4.8 % (0.0-5.0); BG FRACTION INSPIRED OXYGEN 21; BG METHEMOGLOBIN 0.3 % (0.0-1.5); BG OXYGEN SATURATION 95.2 % (92.0-98.5); BG OXYHEMOGLOBIN 94.6 % (94.0-97.0); BG PH 7.463 (7.350-7.450); BG PO2 78.4 mmHg (75.0-100.0); BG SAMPLE SITE RIGHT RADIAL; BG TOTAL HEMOGLOBIN 9.4 g/dL (12.0-18.0); BG VENT MODE ROOM AIR
[2018-05-01] MEDS ORDERED: POTASSIUM PHOS,M-BASIC-D-BASIC 20 MMOL in DEXT 5% WATER 250 ML IV SCH (11:30)
[2018-05-01] MEDS: CLONIDINE 0.2MG TABLET PO SCH ×2 (13:51→21:21)
[2018-05-01] MEDS: ACETAMINOPHEN 325MG TABLET PO PRN (14:11)
[2018-05-01] MEDS ORDERED: IPRATROPIUM/ALBUTEROL 0.5-3(2.5)MG/3ML NEB HHN PRN (15:00)
[2018-05-01] MEDS: GUAIFENESIN 600MG ER TABLET PO SCH (20:07)
[2018-05-01] MEDS: ATORVASTATIN CALCIUM 20MG TABLET PO SCH (20:07)
[2018-05-01] MEDS: DOXAZOSIN MESYLATE 2MG TABLET PO SCH (20:10)
[2018-05-01] MEDS: INSULIN GLARGINE UD 100 UNITS/ML SYR SUBCUT SCH (21:20)
[2018-05-02] VITALS (64 sets, daily range): BP systolic 113–212; BP diastolic 47–124
[2018-05-02] MEDS: SODIUM CHLORIDE 0.9% 1,000 ML IV SCH (03:49)
[2018-05-02] MEDS: LEVETIRACETAM 250 MG in SODIUM CHLORIDE 0.9% 100 ML IV SCH ×2 (03:49→16:27)
[2018-05-02] MEDS: HYDRALAZINE 20MG/ML VIAL IV PRN ×2 (03:50→18:00)
[2018-05-02] MEDS: HALOPERIDOL LACTATE 5MG/ML VIAL IM PRN ×2 (05:47→17:57)
[2018-05-02] MEDS: HYDRALAZINE HCL 100MG TABLET PO SCH ×3 (05:47→22:05)
[2018-05-02] MEDS: CLONIDINE 0.2MG TABLET PO SCH ×3 (05:48→22:05)
[2018-05-02] MEDS: NITROGLYCERIN OINT 1GM/INCH UDPKT TD SCH ×3 (05:48→22:07)
[2018-05-02 06:10] LABS: BASOPHILS % 0.6 % (0.0-2.0); EOSINOPHILS % 1.1 % (0.0-5.0); HEMATOCRIT. 29.8 % (42.0-52.0); HEMOGLOBIN. 10.3 g/dL (14.0-18.0); LYMPHOCYTES % 26.4 % (20.0-50.0); MEAN CORPUSCULAR HEMOGLOBIN 30.8 pg (28.0-32.0); MEAN CORPUSCULAR VOLUME 88.9 fL (80.0-94.0); MEAN PLATELET VOLUME 8.5 fl (7.4-10.4); NEUTROPHILS % 62.9 % (40.0-76.0); PLATELET 210 x1000/uL (130-400); RED BLOOD CELL COUNT 3.35 mill/uL (4.7-6.1); RED CELL DISTRIBUTION WIDTH 13.6 % (11.6-14.6)
[2018-05-02] MEDS: BLOOD SUGAR DIAGNOSTIC STRIP TEST SCH ×3 (06:16→17:17)
[2018-05-02] MEDS: INSULIN LISPRO 100 UNITS/ML SUBCUT SCH ×3 (06:16→17:17)
[2018-05-02 07:08] LABS: CHLORIDE 114 mEq/L (98-107)
[2018-05-02 07:15] LABS: PHOSPHORUS 3.5 mg/dL (2.5-4.9)
[2018-05-02] MEDS: GUAIFENESIN 600MG ER TABLET PO SCH ×2 (08:17→22:17)
[2018-05-02] MEDS: DOCUSATE SODIUM SUGAR FREE 100MG/10ML UDC NG SCH ×3 (08:31→17:13)
[2018-05-02] MEDS: ENOXAPARIN 40MG/0.4ML SYR SUBCUT SCH (08:32)
[2018-05-02] MEDS: BENAZEPRIL 10MG TABLET PO SCH ×2 (08:34→22:05)
[2018-05-02] MEDS: CLOPIDOGREL 75MG TABLET PO SCH (08:34)
[2018-05-02] MEDS: METOPROLOL TARTRATE 50MG TABLET PO SCH ×2 (08:34→22:04)
[2018-05-02] MEDS: FINASTERIDE 5MG TABLET PO SCH (08:34)
[2018-05-02] MEDS: AMLODIPINE 5MG TABLET PO SCH ×3 (08:34→17:13)
[2018-05-02] MEDS: RISPERIDONE 1MG TABLET PO SCH ×2 (08:34→22:05)
[2018-05-02] MEDS ORDERED: CLONIDINE HCL 0.3MG/24HR PATCH TD SCH (09:00)
[2018-05-02] MEDS ORDERED: LORAZEPAM 2MG/ML CPJ IV PRN (20:00)
[2018-05-02] MEDS: ENALAPRIL 2.5MG/2ML VIAL 2ML IV PRN (20:18)
[2018-05-02] MEDS: DOXAZOSIN MESYLATE 2MG TABLET PO SCH (22:06)
[2018-05-02] MEDS: ATORVASTATIN CALCIUM 20MG TABLET PO SCH (22:06)
[2018-05-02] MEDS: INSULIN GLARGINE UD 100 UNITS/ML SYR SUBCUT SCH (22:10)
[2018-05-03] VITALS (14 sets, daily range): BP systolic 120–159; BP diastolic 55–77
[2018-05-03] MEDS: LEVETIRACETAM 250 MG in SODIUM CHLORIDE 0.9% 100 ML IV SCH ×2 (05:20→16:50)
[2018-05-03] MEDS: BLOOD SUGAR DIAGNOSTIC STRIP TEST SCH ×4 (05:21→17:37)
[2018-05-03] MEDS: HYDRALAZINE HCL 100MG TABLET PO SCH ×2 (05:21→14:59)
[2018-05-03] MEDS: NITROGLYCERIN OINT 1GM/INCH UDPKT TD SCH ×2 (05:21→14:59)
[2018-05-03] MEDS: CLONIDINE 0.2MG TABLET PO SCH ×2 (05:22→14:59)
[2018-05-03] MEDS: INSULIN LISPRO 100 UNITS/ML SUBCUT SCH ×4 (05:23→17:36)
[2018-05-03 07:41] LABS: CHLORIDE 114 mEq/L (98-107)
[2018-05-03 07:47] LABS: PHOSPHORUS 3.4 mg/dL (2.5-4.9)
[2018-05-03] MEDS: DOCUSATE SODIUM SUGAR FREE 100MG/10ML UDC NG SCH ×2 (08:43→16:50)
[2018-05-03] MEDS: RISPERIDONE 1MG TABLET PO SCH (08:43)
[2018-05-03] MEDS: CLOPIDOGREL 75MG TABLET PO SCH (08:43)
[2018-05-03] MEDS: GUAIFENESIN 600MG ER TABLET PO SCH ×2 (08:44→09:00)
[2018-05-03] MEDS: FINASTERIDE 5MG TABLET PO SCH (08:44)
[2018-05-03] MEDS: ENOXAPARIN 40MG/0.4ML SYR SUBCUT SCH (08:44)
[2018-05-03] MEDS: AMLODIPINE 5MG TABLET PO SCH ×2 (08:45→16:50)
[2018-05-03] MEDS: METOPROLOL TARTRATE 50MG TABLET PO SCH ×2 (08:45→22:19)
[2018-05-03] MEDS: BENAZEPRIL 10MG TABLET PO SCH ×2 (08:49→22:17)
[2018-05-03 11:54] LABS: HEMATOCRIT. 27.9 % (42.0-52.0); HEMOGLOBIN. 9.5 g/dL (14.0-18.0); MEAN CORPUSCULAR VOLUME 91.2 fL (80.0-94.0); RED BLOOD CELL COUNT 3.06 mill/uL (4.7-6.1); RED CELL DISTRIBUTION WIDTH 13.7 % (11.6-14.6)
[2018-05-03 12:44] LABS: PLATELET ESTIMATE NORMAL
[2018-05-03 12:45] LABS: PLATELET 191 x1000/uL (130-400)
[2018-05-03] MEDS ORDERED: GUAIFENESIN 200MG/10ML SUGAR FREE UDC PO PRN (17:30)
[2018-05-03] MEDS: DOXAZOSIN MESYLATE 2MG TABLET PO SCH (22:15)
[2018-05-03] MEDS: ATORVASTATIN CALCIUM 20MG TABLET PO SCH (22:15)
[2018-05-03] MEDS: ACETAMINOPHEN 325MG TABLET PO PRN (23:24)
[2018-05-04] VITALS (12 sets, daily range): BP systolic 125–167; BP diastolic 55–94
[2018-05-04] MEDS: HYDRALAZINE HCL 100MG TABLET PO SCH ×4 (00:03→21:20)
[2018-05-04] MEDS: CLONIDINE 0.2MG TABLET PO SCH ×4 (00:03→21:19)
[2018-05-04] MEDS: RISPERIDONE 1MG TABLET PO SCH ×3 (00:04→21:20)
[2018-05-04] MEDS: NITROGLYCERIN OINT 1GM/INCH UDPKT TD SCH ×4 (00:11→21:20)
[2018-05-04] MEDS: INSULIN LISPRO 100 UNITS/ML SUBCUT SCH ×5 (00:15→23:16)
[2018-05-04] MEDS: INSULIN GLARGINE UD 100 UNITS/ML SYR SUBCUT SCH ×2 (00:16→23:15)
[2018-05-04] MEDS: BLOOD SUGAR DIAGNOSTIC STRIP TEST SCH ×5 (00:16→23:16)
[2018-05-04] MEDS: LEVETIRACETAM 250 MG in SODIUM CHLORIDE 0.9% 100 ML IV SCH ×2 (06:36→16:38)
[2018-05-04] MEDS: ENOXAPARIN 40MG/0.4ML SYR SUBCUT SCH (09:10)
[2018-05-04] MEDS: CLOPIDOGREL 75MG TABLET PO SCH (09:11)
[2018-05-04] MEDS: DOCUSATE SODIUM SUGAR FREE 100MG/10ML UDC NG SCH ×2 (09:11→16:36)
[2018-05-04] MEDS: FINASTERIDE 5MG TABLET PO SCH (09:12)
[2018-05-04] MEDS: METOPROLOL TARTRATE 50MG TABLET PO SCH ×2 (09:12→21:19)
[2018-05-04] MEDS: BENAZEPRIL 10MG TABLET PO SCH ×2 (09:12→21:20)
[2018-05-04] MEDS: AMLODIPINE 5MG TABLET PO SCH ×2 (09:13→16:37)
[2018-05-04 10:56] LABS: BASOPHILS % 0.7 % (0.0-2.0); EOSINOPHILS % 1.4 % (0.0-5.0); HEMATOCRIT. 28.5 % (42.0-52.0); HEMOGLOBIN. 9.7 g/dL (14.0-18.0); LYMPHOCYTES % 27.2 % (20.0-50.0); MEAN CORPUSCULAR HEMOGLOBIN 30.6 pg (28.0-32.0); MEAN CORPUSCULAR VOLUME 90.1 fL (80.0-94.0); MEAN PLATELET VOLUME 8.2 fl (7.4-10.4); NEUTROPHILS % 60.7 % (40.0-76.0); PLATELET 185 x1000/uL (130-400); RED BLOOD CELL COUNT 3.16 mill/uL (4.7-6.1); RED CELL DISTRIBUTION WIDTH 13.8 % (11.6-14.6)
[2018-05-04] MEDS: HYDRALAZINE 20MG/ML VIAL IV PRN (10:56)
[2018-05-04] MEDS: LORAZEPAM 2MG/ML CPJ IV PRN (10:58)
[2018-05-04] MEDS: DEXT 5%/0.45% NACL KCL 20MEQ/L 1,000 ML IV SCH (12:47)
[2018-05-04] MEDS: ATORVASTATIN CALCIUM 20MG TABLET PO SCH (21:19)
[2018-05-04] MEDS: DOXAZOSIN MESYLATE 2MG TABLET PO SCH (21:20)
[2018-05-04] MEDS: ACETAMINOPHEN 325MG TABLET PO PRN (21:21)
[2018-05-05] VITALS (23 sets, daily range): BP systolic 123–168; BP diastolic 56–75
[2018-05-05] MEDS: DEXT 5%/0.45% NACL KCL 20MEQ/L 1,000 ML IV SCH ×2 (02:50→19:07)
[2018-05-05] MEDS: LEVETIRACETAM 250 MG in SODIUM CHLORIDE 0.9% 100 ML IV SCH ×2 (04:34→17:17)
[2018-05-05] MEDS: CLONIDINE 0.2MG TABLET PO SCH ×3 (05:59→20:54)
[2018-05-05] MEDS: HYDRALAZINE HCL 100MG TABLET PO SCH ×3 (05:59→20:54)
[2018-05-05] MEDS: BLOOD SUGAR DIAGNOSTIC STRIP TEST SCH ×3 (06:00→17:41)
[2018-05-05] MEDS: NITROGLYCERIN OINT 1GM/INCH UDPKT TD SCH ×3 (06:00→20:55)
[2018-05-05] MEDS: ACETAMINOPHEN 325MG TABLET PO PRN (06:00)
[2018-05-05] MEDS: INSULIN LISPRO 100 UNITS/ML SUBCUT SCH ×3 (06:17→17:51)
[2018-05-05] MEDS: RISPERIDONE 1MG TABLET PO SCH ×2 (09:35→20:55)
[2018-05-05] MEDS: ENOXAPARIN 40MG/0.4ML SYR SUBCUT SCH (09:36)
[2018-05-05] MEDS: CLOPIDOGREL 75MG TABLET PO SCH (09:37)
[2018-05-05] MEDS: FINASTERIDE 5MG TABLET PO SCH (09:37)
[2018-05-05] MEDS: METOPROLOL TARTRATE 50MG TABLET PO SCH ×2 (09:37→20:54)
[2018-05-05] MEDS: AMLODIPINE 5MG TABLET PO SCH ×2 (09:38→17:18)
[2018-05-05] MEDS: BENAZEPRIL 10MG TABLET PO SCH ×2 (09:39→20:55)
[2018-05-05] MEDS: DOCUSATE SODIUM SUGAR FREE 100MG/10ML UDC NG SCH ×2 (09:40→17:29)
[2018-05-05] MEDS: LORAZEPAM 2MG/ML CPJ IV PRN (10:43)
[2018-05-05 15:28] LABS: BASOPHILS % 0.5 % (0.0-2.0); EOSINOPHILS % 1.6 % (0.0-5.0); HEMATOCRIT. 27.3 % (42.0-52.0); HEMOGLOBIN. 9.3 g/dL (14.0-18.0); LYMPHOCYTES % 34.8 % (20.0-50.0); MEAN CORPUSCULAR HEMOGLOBIN 30.8 pg (28.0-32.0); MEAN PLATELET VOLUME 8.5 fl (7.4-10.4); MONOCYTES % 10.9 % (2.0-8.0); NEUTROPHILS % 52.2 % (40.0-76.0); PLATELET 174 x1000/uL (130-400); RED BLOOD CELL COUNT 3.03 mill/uL (4.7-6.1); RED CELL DISTRIBUTION WIDTH 13.4 % (11.6-14.6)
[2018-05-05] MEDS: DOXAZOSIN MESYLATE 2MG TABLET PO SCH (20:54)
[2018-05-05] MEDS: ATORVASTATIN CALCIUM 20MG TABLET PO SCH (20:54)
[2018-05-05] MEDS ORDERED: INSULIN GLARGINE UD 100 UNITS/ML SYR SUBCUT SCH (22:00)
[2018-05-06] VITALS (12 sets, daily range): BP systolic 137–185; BP diastolic 53–105
[2018-05-06] MEDS: INSULIN LISPRO 100 UNITS/ML SUBCUT SCH ×6 (00:44→21:55)
[2018-05-06 03:24] LABS: CLARITY URINE CLOUDY (CLEAR); COLOR URINE YELLOW (YELLOW); KETONES URINE NEGATIVE (NEGATIVE); LEUKOCYTE ESTERASE URINE 2+ (NEGATIVE); NITRITE URINE POSITIVE (NEGATIVE); OCCULT BLOOD URINE 2+ (NEGATIVE); PROTEIN URINE 2+ (NEGATIVE); SPECIFIC GRAVITY URINE 1.019 (1.005-1.030)
[2018-05-06] MEDS: LEVETIRACETAM 250 MG in SODIUM CHLORIDE 0.9% 100 ML IV SCH ×2 (04:16→16:13)
[2018-05-06] MEDS: NITROGLYCERIN OINT 1GM/INCH UDPKT TD SCH ×3 (05:03→21:39)
[2018-05-06] MEDS: CLONIDINE 0.2MG TABLET PO SCH ×3 (05:03→21:39)
[2018-05-06] MEDS: HYDRALAZINE HCL 100MG TABLET PO SCH ×3 (05:03→21:39)
[2018-05-06] MEDS: DEXT 5%/0.45% NACL KCL 20MEQ/L 1,000 ML IV SCH ×3 (05:04→20:58)
[2018-05-06] MEDS: ACETAMINOPHEN 325MG TABLET PO PRN (05:12)
[2018-05-06] MEDS: BLOOD SUGAR DIAGNOSTIC STRIP TEST SCH ×5 (05:24→21:56)
[2018-05-06 07:04] LABS: PARTIAL THROMBOPLASTIN TIME 30.8 sec (23.4-31.0); PROTHROMBIN TIME 10.5 sec (9.1-11.1)
[2018-05-06 07:11] LABS: BASOPHILS % 0.7 % (0.0-2.0); EOSINOPHILS % 1.5 % (0.0-5.0); HEMATOCRIT. 29.5 % (42.0-52.0); HEMOGLOBIN. 10.1 g/dL (14.0-18.0); LYMPHOCYTES % 31.2 % (20.0-50.0); MEAN CORPUSCULAR HEMOGLOBIN 30.8 pg (28.0-32.0); MEAN CORPUSCULAR VOLUME 90.1 fL (80.0-94.0); MEAN PLATELET VOLUME 8.6 fl (7.4-10.4); MONOCYTES % 8.3 % (2.0-8.0); NEUTROPHILS % 58.3 % (40.0-76.0); PLATELET 188 x1000/uL (130-400); RED BLOOD CELL COUNT 3.28 mill/uL (4.7-6.1); RED CELL DISTRIBUTION WIDTH 13.6 % (11.6-14.6)
[2018-05-06 07:26] LABS: CHLORIDE 109 mEq/L (98-107)
[2018-05-06] MEDS: METOPROLOL TARTRATE 50MG TABLET PO SCH ×2 (08:53→20:56)
[2018-05-06] MEDS: FINASTERIDE 5MG TABLET PO SCH (08:53)
[2018-05-06] MEDS: RISPERIDONE 1MG TABLET PO SCH (08:53)
[2018-05-06] MEDS: CLOPIDOGREL 75MG TABLET PO SCH (08:53)
[2018-05-06] MEDS: ENOXAPARIN 40MG/0.4ML SYR SUBCUT SCH (08:54)
[2018-05-06] MEDS: AMLODIPINE 5MG TABLET PO SCH ×2 (08:54→16:12)
[2018-05-06] MEDS: DOCUSATE SODIUM SUGAR FREE 100MG/10ML UDC NG SCH ×2 (08:54→16:13)
[2018-05-06] MEDS: BENAZEPRIL 10MG TABLET PO SCH ×2 (08:54→20:56)
[2018-05-06] MEDS: CLONIDINE HCL 0.3MG/24HR PATCH TD SCH (08:58)
[2018-05-06] MEDS: CEFTRIAXONE 1 G PREMIX 50 ML IV SCH (12:16)
[2018-05-06] MEDS: INSULIN GLARGINE UD 100 UNITS/ML SYR SUBCUT SCH ×2 (12:17→21:56)
[2018-05-06] MEDS: ENALAPRIL 2.5MG/2ML VIAL 2ML IV PRN (17:11)
[2018-05-06] MEDS: HYDRALAZINE 20MG/ML VIAL IV PRN (18:03)
[2018-05-06] MEDS: DILTIAZEM HCL 5MG/ML 5ML VIAL IV PRN ×2 (19:25→23:45)
[2018-05-06] MEDS: DOXAZOSIN MESYLATE 2MG TABLET PO SCH (20:55)
[2018-05-06] MEDS: ATORVASTATIN CALCIUM 20MG TABLET PO SCH (21:03)
[2018-05-07] VITALS (13 sets, daily range): BP systolic 129–174; BP diastolic 54–72
[2018-05-07] MEDS: HYDRALAZINE 20MG/ML VIAL IV PRN (03:44)
[2018-05-07] MEDS: LEVETIRACETAM 250 MG in SODIUM CHLORIDE 0.9% 100 ML IV SCH ×2 (03:58→17:29)
[2018-05-07] MEDS: INSULIN LISPRO 100 UNITS/ML SUBCUT SCH ×4 (05:52→23:00)
[2018-05-07] MEDS: HYDRALAZINE HCL 100MG TABLET PO SCH ×2 (05:53→18:03)
[2018-05-07] MEDS: BLOOD SUGAR DIAGNOSTIC STRIP TEST SCH ×4 (05:53→22:57)
[2018-05-07] MEDS: CLONIDINE 0.2MG TABLET PO SCH ×3 (05:53→22:51)
[2018-05-07 06:15] LABS: BASOPHILS % 1.1 % (0.0-2.0); EOSINOPHILS % 0.9 % (0.0-5.0); HEMATOCRIT. 31.5 % (42.0-52.0); HEMOGLOBIN. 10.9 g/dL (14.0-18.0); LYMPHOCYTES % 33.2 % (20.0-50.0); MEAN CORPUSCULAR HEMOGLOBIN 31.1 pg (28.0-32.0); MEAN CORPUSCULAR VOLUME 89.8 fL (80.0-94.0); MEAN PLATELET VOLUME 8.5 fl (7.4-10.4); MONOCYTES % 11.6 % (2.0-8.0); NEUTROPHILS % 53.2 % (40.0-76.0); PLATELET 205 x1000/uL (130-400); RED BLOOD CELL COUNT 3.51 mill/uL (4.7-6.1); RED CELL DISTRIBUTION WIDTH 13.7 % (11.6-14.6)
[2018-05-07] MEDS: NITROGLYCERIN OINT 1GM/INCH UDPKT TD SCH ×3 (06:30→22:53)
[2018-05-07 07:15] LABS: CHLORIDE 109 mEq/L (98-107)
[2018-05-07 07:29] LABS: PHOSPHORUS 3.5 mg/dL (2.5-4.9)
[2018-05-07] MEDS: METOPROLOL TARTRATE 50MG TABLET PO SCH (08:27)
[2018-05-07] MEDS: AMLODIPINE 5MG TABLET PO SCH (08:27)
[2018-05-07] MEDS: DOCUSATE SODIUM SUGAR FREE 100MG/10ML UDC NG SCH ×2 (08:27→18:03)
[2018-05-07] MEDS: BENAZEPRIL 10MG TABLET PO SCH ×2 (08:28→22:52)
[2018-05-07] MEDS: FINASTERIDE 5MG TABLET PO SCH (08:28)
[2018-05-07] MEDS: INSULIN GLARGINE UD 100 UNITS/ML SYR SUBCUT SCH ×2 (09:47→22:55)
[2018-05-07] MEDS: CEFTRIAXONE 1 G PREMIX 50 ML IV SCH (10:51)
[2018-05-07] MEDS ORDERED: MINOXIDIL 2.5MG TABLET PO SCH (21:00)
[2018-05-07] MEDS: DOXAZOSIN MESYLATE 2MG TABLET PO SCH (22:51)
[2018-05-07] MEDS: METOPROLOL TARTRATE 100MG TABLET PO SCH (22:52)
[2018-05-07] MEDS: ATORVASTATIN CALCIUM 20MG TABLET PO SCH (22:56)
[2018-05-08] VITALS (11 sets, daily range): BP systolic 126–185; BP diastolic 53–89
[2018-05-08] MEDS: LEVETIRACETAM 250 MG in SODIUM CHLORIDE 0.9% 100 ML IV SCH ×2 (04:06→17:18)
[2018-05-08] MEDS: HYDRALAZINE 20MG/ML VIAL IV PRN (04:38)
[2018-05-08] MEDS: INSULIN LISPRO 100 UNITS/ML SUBCUT SCH ×6 (05:39→23:05)
[2018-05-08] MEDS: CLONIDINE 0.2MG TABLET PO SCH ×2 (05:40→21:25)
[2018-05-08] MEDS: ENALAPRIL 2.5MG/2ML VIAL 2ML IV PRN (05:40)
[2018-05-08] MEDS: HYDRALAZINE HCL 100MG TABLET PO SCH ×2 (05:40→19:02)
[2018-05-08] MEDS: NITROGLYCERIN OINT 1GM/INCH UDPKT TD SCH ×3 (05:41→21:18)
[2018-05-08] MEDS: BLOOD SUGAR DIAGNOSTIC STRIP TEST SCH ×4 (05:41→23:06)
[2018-05-08 07:11] LABS: PARTIAL THROMBOPLASTIN TIME 28.5 sec (23.4-31.0); PROTHROMBIN TIME 10.4 sec (9.1-11.1)
[2018-05-08 07:19] LABS: BASOPHILS % 0.5 % (0.0-2.0); EOSINOPHILS % 1.3 % (0.0-5.0); HEMATOCRIT. 31.3 % (42.0-52.0); HEMOGLOBIN. 10.7 g/dL (14.0-18.0); LYMPHOCYTES % 23.2 % (20.0-50.0); MEAN CORPUSCULAR HEMOGLOBIN 30.9 pg (28.0-32.0); MEAN CORPUSCULAR VOLUME 90.4 fL (80.0-94.0); MEAN PLATELET VOLUME 8.6 fl (7.4-10.4); MONOCYTES % 8.6 % (2.0-8.0); NEUTROPHILS % 66.4 % (40.0-76.0); PLATELET 209 x1000/uL (130-400); RED BLOOD CELL COUNT 3.46 mill/uL (4.7-6.1); RED CELL DISTRIBUTION WIDTH 13.6 % (11.6-14.6)
[2018-05-08] MEDS: DOCUSATE SODIUM SUGAR FREE 100MG/10ML UDC NG SCH ×2 (10:21→17:18)
[2018-05-08] MEDS: MINOXIDIL 2.5MG TABLET PO SCH ×2 (10:22→21:19)
[2018-05-08] MEDS: FINASTERIDE 5MG TABLET PO SCH (10:23)
[2018-05-08] MEDS: BENAZEPRIL 10MG TABLET PO SCH ×2 (10:23→21:19)
[2018-05-08] MEDS: METOPROLOL TARTRATE 100MG TABLET PO SCH ×2 (10:24→21:18)
[2018-05-08] MEDS: INSULIN GLARGINE UD 100 UNITS/ML SYR SUBCUT SCH ×2 (10:25→23:06)
[2018-05-08 10:54] LABS: CHLORIDE 110 mEq/L (98-107)
[2018-05-08 11:03] LABS: PHOSPHORUS 4.2 mg/dL (2.5-4.9)
[2018-05-08] MEDS: CEFTRIAXONE 1 G PREMIX 50 ML IV SCH (12:33)
[2018-05-08] MEDS: ATORVASTATIN CALCIUM 20MG TABLET PO SCH (21:25)
[2018-05-09] VITALS (7 sets, daily range): BP systolic 108–200; BP diastolic 62–84
[2018-05-09] MEDS: LEVETIRACETAM 250 MG in SODIUM CHLORIDE 0.9% 100 ML IV SCH ×2 (03:45→16:19)
[2018-05-09] MEDS: DEXTROSE 50% WATER 50ML SYRINGE IV PRN (05:22)
[2018-05-09] MEDS: HYDRALAZINE HCL 100MG TABLET PO SCH ×3 (05:29→22:15)
[2018-05-09] MEDS: ENALAPRIL 2.5MG/2ML VIAL 2ML IV PRN (05:29)
[2018-05-09] MEDS: INSULIN LISPRO 100 UNITS/ML SUBCUT SCH ×3 (05:29→17:01)
[2018-05-09] MEDS: BLOOD SUGAR DIAGNOSTIC STRIP TEST SCH ×3 (05:30→17:01)
[2018-05-09] MEDS: NITROGLYCERIN OINT 1GM/INCH UDPKT TD SCH ×3 (05:56→22:15)
[2018-05-09 06:06] LABS: CHLORIDE 109 mEq/L (98-107)
[2018-05-09 06:12] LABS: BASOPHILS % 0.6 % (0.0-2.0); HEMATOCRIT. 32.1 % (42.0-52.0); HEMOGLOBIN. 11.1 g/dL (14.0-18.0); LYMPHOCYTES % 27.8 % (20.0-50.0); MEAN CORPUSCULAR HEMOGLOBIN 31.2 pg (28.0-32.0); MEAN CORPUSCULAR VOLUME 90.3 fL (80.0-94.0); MEAN PLATELET VOLUME 8.8 fl (7.4-10.4); MONOCYTES % 11.6 % (2.0-8.0); PLATELET 234 x1000/uL (130-400); RED BLOOD CELL COUNT 3.56 mill/uL (4.7-6.1); RED CELL DISTRIBUTION WIDTH 13.8 % (11.6-14.6)
[2018-05-09] MEDS: METOPROLOL TARTRATE 100MG TABLET PO SCH ×2 (08:00→20:48)
[2018-05-09] MEDS: FINASTERIDE 5MG TABLET PO SCH (08:00)
[2018-05-09] MEDS: BENAZEPRIL 10MG TABLET PO SCH ×2 (08:01→20:48)
[2018-05-09] MEDS: MINOXIDIL 2.5MG TABLET PO SCH ×3 (08:02→22:16)
[2018-05-09] MEDS: CLONIDINE 0.2MG TABLET PO SCH ×3 (08:02→22:15)
[2018-05-09] MEDS: DOCUSATE SODIUM SUGAR FREE 100MG/10ML UDC NG SCH ×2 (08:02→17:32)
[2018-05-09] MEDS: INSULIN GLARGINE UD 100 UNITS/ML SYR SUBCUT SCH ×2 (09:42→22:00)
[2018-05-09] MEDS: CEFTRIAXONE 1 G PREMIX 50 ML IV SCH (11:28)
[2018-05-09] MEDS: ATORVASTATIN CALCIUM 20MG TABLET PO SCH (20:49)
[2018-05-10] VITALS (10 sets, daily range): BP systolic 112–176; BP diastolic 45–75
[2018-05-10] MEDS: BLOOD SUGAR DIAGNOSTIC STRIP TEST SCH ×5 (00:12→23:49)
[2018-05-10] MEDS: LEVETIRACETAM 250 MG in SODIUM CHLORIDE 0.9% 100 ML IV SCH ×2 (04:24→16:54)
[2018-05-10] MEDS: HYDRALAZINE HCL 100MG TABLET PO SCH ×3 (05:33→21:36)
[2018-05-10] MEDS: CLONIDINE 0.2MG TABLET PO SCH ×4 (05:33→21:37)
[2018-05-10] MEDS: INSULIN LISPRO 100 UNITS/ML SUBCUT SCH ×5 (05:34→23:54)
[2018-05-10] MEDS: NITROGLYCERIN OINT 1GM/INCH UDPKT TD SCH ×3 (05:34→21:36)
[2018-05-10] MEDS: MINOXIDIL 2.5MG TABLET PO SCH ×3 (05:34→21:36)
[2018-05-10 07:12] LABS: BASOPHILS % 0.4 % (0.0-2.0); EOSINOPHILS % 1.8 % (0.0-5.0); HEMATOCRIT. 32.7 % (42.0-52.0); HEMOGLOBIN. 10.9 g/dL (14.0-18.0); LYMPHOCYTES % 29.3 % (20.0-50.0); MEAN CORPUSCULAR HEMOGLOBIN 30.2 pg (28.0-32.0); MEAN CORPUSCULAR VOLUME 90.8 fL (80.0-94.0); MEAN PLATELET VOLUME 8.9 fl (7.4-10.4); MONOCYTES % 11.1 % (2.0-8.0); NEUTROPHILS % 57.4 % (40.0-76.0); PLATELET 243 x1000/uL (130-400); RED CELL DISTRIBUTION WIDTH 13.7 % (11.6-14.6)
[2018-05-10 07:44] LABS: CHLORIDE 110 mEq/L (98-107)
[2018-05-10] MEDS: DOCUSATE SODIUM SUGAR FREE 100MG/10ML UDC NG SCH ×2 (08:29→17:00)
[2018-05-10] MEDS: BENAZEPRIL 10MG TABLET PO SCH (08:29)
[2018-05-10] MEDS: METOPROLOL TARTRATE 100MG TABLET PO SCH ×2 (08:29→21:35)
[2018-05-10] MEDS: FINASTERIDE 5MG TABLET PO SCH (08:30)
[2018-05-10] MEDS: INSULIN GLARGINE UD 100 UNITS/ML SYR SUBCUT SCH ×2 (10:00→22:00)
[2018-05-10] MEDS: CEFTRIAXONE 1 G PREMIX 50 ML IV SCH (11:59)
[2018-05-10] MEDS ORDERED: ENALAPRIL 1.25MG/ML VIAL 1ML IV PRN (14:34)
[2018-05-10] MEDS ORDERED: MIDAZOLAM HCL 5 MG/5 ML VIAL ONE (19:05)
[2018-05-10] MEDS ORDERED: FENTANYL CITRATE/PF 50MCG/ML 2ML VIAL ONE (19:05)
[2018-05-10] MEDS ORDERED: DIPHENHYDRAMINE 50MG/ML VIAL ONE (19:06)
[2018-05-10] MEDS ORDERED: FENTANYL CITRATE/PF 50MCG/ML 2ML VIAL IV ONE (19:15)
[2018-05-10] MEDS ORDERED: MIDAZOLAM HCL 5 MG/5 ML VIAL IV ONE (19:15)
[2018-05-10] MEDS ORDERED: HYDRALAZINE 20MG/ML VIAL IV ONE ×2 (19:25→19:35)
[2018-05-10] MEDS ORDERED: HYDRALAZINE 20MG/ML VIAL ONE (19:35)
[2018-05-10] MEDS ORDERED: CEFAZOLIN 1000MG PREMIX 50 ML IV NR (20:00)
[2018-05-10] MEDS ORDERED: CLONIDINE 0.2MG TABLET PO SCH (21:00)
[2018-05-10] MEDS: ATORVASTATIN CALCIUM 20MG TABLET PO SCH (21:36)
[2018-05-10] MEDS: SODIUM CHLORIDE 0.45% 1,000 ML IV SCH (21:40)
[2018-05-10] MEDS ORDERED: PANTOPRAZOLE SODIUM 40 MG/VIAL IV NR (22:00)
[2018-05-10] MEDS: METOCLOPRAMIDE HCL 10MG/2ML VIAL IV SCH (23:57)
[2018-05-11] VITALS: BP 150/70
[2018-05-11] MEDS: ACETAMINOPHEN 325MG TABLET PO PRN ×2 (03:38→13:44)
[2018-05-11] MEDS: LEVETIRACETAM 250 MG in SODIUM CHLORIDE 0.9% 100 ML IV SCH ×2 (03:59→16:41)
[2018-05-11] MEDS: METOCLOPRAMIDE HCL 10MG/2ML VIAL IV SCH ×4 (05:44→23:04)
[2018-05-11] MEDS: MINOXIDIL 2.5MG TABLET PO SCH ×2 (05:45→18:47)
[2018-05-11] MEDS: NITROGLYCERIN OINT 1GM/INCH UDPKT TD SCH ×3 (05:45→20:23)
[2018-05-11] MEDS: INSULIN LISPRO 100 UNITS/ML SUBCUT SCH ×4 (05:45→23:10)
[2018-05-11] MEDS: BLOOD SUGAR DIAGNOSTIC STRIP TEST SCH ×4 (05:45→23:04)
[2018-05-11 07:17] LABS: BASOPHILS % 0.4 % (0.0-2.0); EOSINOPHILS % 0.1 % (0.0-5.0); HEMATOCRIT. 31.1 % (42.0-52.0); HEMOGLOBIN. 10.4 g/dL (14.0-18.0); LYMPHOCYTES % 15.1 % (20.0-50.0); MEAN CORPUSCULAR HEMOGLOBIN 30.5 pg (28.0-32.0); MEAN CORPUSCULAR VOLUME 91.4 fL (80.0-94.0); MONOCYTES % 8.8 % (2.0-8.0); NEUTROPHILS % 75.6 % (40.0-76.0); PLATELET 253 x1000/uL (130-400); RED CELL DISTRIBUTION WIDTH 13.9 % (11.6-14.6)
[2018-05-11 08:00] VITALS: BP 153/84
[2018-05-11] MEDS: CLONIDINE 0.2MG TABLET PO SCH ×3 (09:00→20:23)
[2018-05-11] MEDS: HYDRALAZINE HCL 100MG TABLET PO SCH ×3 (09:00→20:34)
[2018-05-11] MEDS: PANTOPRAZOLE SODIUM 40 MG/VIAL IV SCH (09:51)
[2018-05-11] MEDS: FINASTERIDE 5MG TABLET PO SCH (09:52)
[2018-05-11] MEDS: DOCUSATE SODIUM SUGAR FREE 100MG/10ML UDC NG SCH ×2 (09:52→16:41)
[2018-05-11] MEDS: METOPROLOL TARTRATE 100MG TABLET PO SCH ×2 (09:53→20:31)
[2018-05-11] MEDS: LOSARTAN POTASSIUM 100 MG TABLET PO SCH (09:53)
[2018-05-11] MEDS: SODIUM CHLORIDE 0.45% 1,000 ML IV SCH ×2 (09:54→22:56)
[2018-05-11] MEDS: INSULIN GLARGINE UD 100 UNITS/ML SYR SUBCUT SCH ×2 (10:44→23:09)
[2018-05-11 12:00] VITALS: BP 137/62
[2018-05-11] MEDS: CEFTRIAXONE 1 G PREMIX 50 ML IV SCH (12:28)
[2018-05-11 16:00] VITALS: BP 147/89
[2018-05-11] MEDS ORDERED: CEFAZOLIN SODIUM 500MG/VIAL IV ONE (19:13)
[2018-05-11 19:52] LABS: CLARITY URINE CLEAR (CLEAR); COLOR URINE YELLOW (YELLOW); KETONES URINE NEGATIVE (NEGATIVE); LEUKOCYTE ESTERASE URINE 2+ (NEGATIVE); NITRITE URINE NEGATIVE (NEGATIVE); OCCULT BLOOD URINE TRACE (NEGATIVE); PH URINE 5.5 (4.5-8.0); PROTEIN URINE 1+ (NEGATIVE); SPECIFIC GRAVITY URINE 1.015 (1.005-1.030)
[2018-05-11] MEDS: ATORVASTATIN CALCIUM 20MG TABLET PO SCH (20:23)
[2018-05-12] VITALS: BP 137/66
[2018-05-12] MEDS: LEVETIRACETAM 250 MG in SODIUM CHLORIDE 0.9% 100 ML IV SCH ×2 (03:53→16:39)
[2018-05-12] MEDS: BLOOD SUGAR DIAGNOSTIC STRIP TEST SCH ×4 (05:31→23:26)
[2018-05-12] MEDS: METOCLOPRAMIDE HCL 10MG/2ML VIAL IV SCH ×4 (05:31→23:25)
[2018-05-12] MEDS: INSULIN LISPRO 100 UNITS/ML SUBCUT SCH ×4 (05:31→23:25)
[2018-05-12] MEDS: MINOXIDIL 2.5MG TABLET PO SCH ×2 (05:35→18:16)
[2018-05-12] MEDS: NITROGLYCERIN OINT 1GM/INCH UDPKT TD SCH (05:36)
[2018-05-12 05:55] LABS: BASOPHILS % 0.6 % (0.0-2.0); EOSINOPHILS % 0.8 % (0.0-5.0); HEMATOCRIT. 28.6 % (42.0-52.0); HEMOGLOBIN. 9.7 g/dL (14.0-18.0); LYMPHOCYTES % 25.6 % (20.0-50.0); MEAN CORPUSCULAR HEMOGLOBIN 30.7 pg (28.0-32.0); MEAN CORPUSCULAR VOLUME 90.4 fL (80.0-94.0); MEAN PLATELET VOLUME 8.8 fl (7.4-10.4); MONOCYTES % 9.3 % (2.0-8.0); NEUTROPHILS % 63.7 % (40.0-76.0); PLATELET 265 x1000/uL (130-400); RED BLOOD CELL COUNT 3.16 mill/uL (4.7-6.1); RED CELL DISTRIBUTION WIDTH 13.4 % (11.6-14.6)
[2018-05-12 08:00] VITALS: BP 163/72
[2018-05-12] MEDS: PANTOPRAZOLE SODIUM 40 MG/VIAL IV SCH (08:43)
[2018-05-12] MEDS: FINASTERIDE 5MG TABLET PO SCH (08:43)
[2018-05-12] MEDS: DOCUSATE SODIUM SUGAR FREE 100MG/10ML UDC NG SCH ×2 (08:43→16:40)
[2018-05-12] MEDS: LOSARTAN POTASSIUM 100 MG TABLET PO SCH (08:44)
[2018-05-12] MEDS: HYDRALAZINE HCL 100MG TABLET PO SCH ×2 (08:44→21:00)
[2018-05-12] MEDS: CLONIDINE 0.2MG TABLET PO SCH (08:44)
[2018-05-12] MEDS: METOPROLOL TARTRATE 100MG TABLET PO SCH ×2 (08:44→21:01)
[2018-05-12 10:00] VITALS: BP 114/57
[2018-05-12] MEDS: INSULIN GLARGINE UD 100 UNITS/ML SYR SUBCUT SCH ×2 (10:47→23:27)
[2018-05-12] MEDS: CEFTRIAXONE 1 G PREMIX 50 ML IV SCH (10:47)
[2018-05-12 12:00] VITALS: BP 107/59
[2018-05-12] MEDS: ACETAMINOPHEN 325MG TABLET PO PRN (13:00)
[2018-05-12] MEDS ORDERED: CLONIDINE 0.1MG TABLET PO PRN (13:30)
[2018-05-12 16:00] VITALS: BP 125/58
[2018-05-12] MEDS: ATORVASTATIN CALCIUM 20MG TABLET PO SCH (21:02)
[2018-05-13] MEDS: LEVETIRACETAM 250 MG in SODIUM CHLORIDE 0.9% 100 ML IV SCH ×2 (04:01→17:46)
[2018-05-13] MEDS: METOCLOPRAMIDE HCL 10MG/2ML VIAL IV SCH ×4 (05:34→23:51)
[2018-05-13] MEDS: MINOXIDIL 2.5MG TABLET PO SCH ×2 (05:34→17:48)
[2018-05-13] MEDS: INSULIN LISPRO 100 UNITS/ML SUBCUT SCH ×4 (06:00→23:51)
[2018-05-13] MEDS: BLOOD SUGAR DIAGNOSTIC STRIP TEST SCH ×4 (06:07→23:51)
[2018-05-13 07:40] LABS: BASOPHILS % 0.4 % (0.0-2.0); HEMATOCRIT. 30.2 % (42.0-52.0); HEMOGLOBIN. 10.1 g/dL (14.0-18.0); LYMPHOCYTES % 28.2 % (20.0-50.0); MEAN CORPUSCULAR HEMOGLOBIN 30.6 pg (28.0-32.0); MEAN CORPUSCULAR VOLUME 91.2 fL (80.0-94.0); MEAN PLATELET VOLUME 8.5 fl (7.4-10.4); MONOCYTES % 10.2 % (2.0-8.0); NEUTROPHILS % 60.2 % (40.0-76.0); PLATELET 288 x1000/uL (130-400); RED BLOOD CELL COUNT 3.31 mill/uL (4.7-6.1); RED CELL DISTRIBUTION WIDTH 13.5 % (11.6-14.6)
[2018-05-13 08:00] VITALS: BP 149/86
[2018-05-13] MEDS: DOCUSATE SODIUM SUGAR FREE 100MG/10ML UDC NG SCH ×2 (09:20→17:46)
[2018-05-13] MEDS: LOSARTAN POTASSIUM 100 MG TABLET PO SCH (09:20)
[2018-05-13] MEDS: PANTOPRAZOLE SODIUM 40 MG/VIAL IV SCH (09:20)
[2018-05-13] MEDS: HYDRALAZINE HCL 100MG TABLET PO SCH (09:21)
[2018-05-13] MEDS: METOPROLOL TARTRATE 100MG TABLET PO SCH ×2 (09:21→20:56)
[2018-05-13] MEDS: FINASTERIDE 5MG TABLET PO SCH (09:21)
[2018-05-13] MEDS: INSULIN GLARGINE UD 100 UNITS/ML SYR SUBCUT SCH (10:15)
[2018-05-13] MEDS: CEFTRIAXONE 1 G PREMIX 50 ML IV SCH (11:09)
[2018-05-13 12:00] VITALS: BP 119/78
[2018-05-13 20:00] VITALS: BP 160/67
[2018-05-13] MEDS ORDERED: CLONIDINE HCL 0.1MG/24HR PATCH TD SCH (20:00)
[2018-05-13] MEDS: ATORVASTATIN CALCIUM 20MG TABLET PO SCH (20:56)
[2018-05-13] MEDS: HYDRALAZINE HCL 50MG TABLET PO SCH (20:56)
[2018-05-14] VITALS: BP 160/73
[2018-05-14] MEDS: INSULIN GLARGINE UD 100 UNITS/ML SYR SUBCUT SCH ×3 (00:17→23:21)
[2018-05-14] MEDS: LEVETIRACETAM 250 MG in SODIUM CHLORIDE 0.9% 100 ML IV SCH ×2 (04:04→15:55)
[2018-05-14] MEDS: BLOOD SUGAR DIAGNOSTIC STRIP TEST SCH ×4 (05:59→23:21)
[2018-05-14] MEDS: INSULIN LISPRO 100 UNITS/ML SUBCUT SCH ×4 (05:59→23:21)
[2018-05-14] MEDS: MINOXIDIL 2.5MG TABLET PO SCH (06:04)
[2018-05-14] MEDS: METOCLOPRAMIDE HCL 10MG/2ML VIAL IV SCH ×4 (06:04→23:20)
[2018-05-14 06:58] LABS: BASOPHILS % 0.6 % (0.0-2.0); EOSINOPHILS % 1.5 % (0.0-5.0); HEMATOCRIT. 30.1 % (42.0-52.0); HEMOGLOBIN. 10.1 g/dL (14.0-18.0); LYMPHOCYTES % 31.6 % (20.0-50.0); MEAN CORPUSCULAR HEMOGLOBIN 30.2 pg (28.0-32.0); MEAN CORPUSCULAR VOLUME 90.4 fL (80.0-94.0); MEAN PLATELET VOLUME 8.3 fl (7.4-10.4); MONOCYTES % 12.1 % (2.0-8.0); NEUTROPHILS % 54.2 % (40.0-76.0); PLATELET 317 x1000/uL (130-400); RED BLOOD CELL COUNT 3.33 mill/uL (4.7-6.1); RED CELL DISTRIBUTION WIDTH 13.3 % (11.6-14.6)
[2018-05-14 07:02] LABS: CHLORIDE 114 mEq/L (98-107)
[2018-05-14 08:00] VITALS: BP 153/65
[2018-05-14] MEDS: LOSARTAN POTASSIUM 100 MG TABLET PO SCH (09:17)
[2018-05-14] MEDS: FINASTERIDE 5MG TABLET PO SCH (09:17)
[2018-05-14] MEDS: HYDRALAZINE HCL 50MG TABLET PO SCH (09:17)
[2018-05-14] MEDS: METOPROLOL TARTRATE 100MG TABLET PO SCH ×2 (09:17→20:36)
[2018-05-14] MEDS: ENOXAPARIN 40MG/0.4ML SYR SUBCUT SCH (09:17)
[2018-05-14] MEDS: DOCUSATE SODIUM SUGAR FREE 100MG/10ML UDC NG SCH ×2 (09:18→17:15)
[2018-05-14] MEDS: FAMOTIDINE 20MG TABLET PEG SCH (09:18)
[2018-05-14 12:00] VITALS: BP 152/72
[2018-05-14] MEDS: CLOPIDOGREL 75MG TABLET PO SCH (12:39)
[2018-05-14] MEDS: DEXTROSE 50% WATER 50ML SYRINGE IV PRN (12:39)
[2018-05-14 16:00] VITALS: BP 151/71
[2018-05-14 20:00] VITALS: BP 169/70
[2018-05-14] MEDS: ATORVASTATIN CALCIUM 20MG TABLET PO SCH (20:36)
[2018-05-14] MEDS: MINOXIDIL 10MG TABLET PO SCH (23:20)
[2018-05-15] VITALS (9 sets, daily range): BP systolic 93–206; BP diastolic 40–103
[2018-05-15] MEDS: HYDRALAZINE 20MG/ML VIAL IV PRN (00:49)
[2018-05-15] MEDS: LEVETIRACETAM 250 MG in SODIUM CHLORIDE 0.9% 100 ML IV SCH ×2 (04:09→18:42)
[2018-05-15] MEDS: INSULIN LISPRO 100 UNITS/ML SUBCUT SCH ×3 (05:13→18:00)
[2018-05-15] MEDS: MINOXIDIL 10MG TABLET PO SCH ×3 (05:16→22:31)
[2018-05-15] MEDS: BLOOD SUGAR DIAGNOSTIC STRIP TEST SCH ×3 (05:16→18:52)
[2018-05-15] MEDS: DILTIAZEM HCL 5MG/ML 5ML VIAL IV PRN (05:20)
[2018-05-15] MEDS: METOCLOPRAMIDE HCL 10MG/2ML VIAL IV SCH ×3 (05:30→18:43)
[2018-05-15 07:30] LABS: EOSINOPHILS % 1.5 % (0.0-5.0); HEMATOCRIT. 30.3 % (42.0-52.0); HEMOGLOBIN. 10.3 g/dL (14.0-18.0); LYMPHOCYTES % 33.3 % (20.0-50.0); MEAN CORPUSCULAR HEMOGLOBIN 30.4 pg (28.0-32.0); MEAN CORPUSCULAR VOLUME 89.7 fL (80.0-94.0); MEAN PLATELET VOLUME 8.3 fl (7.4-10.4); MONOCYTES % 12.3 % (2.0-8.0); NEUTROPHILS % 51.9 % (40.0-76.0); PLATELET 366 x1000/uL (130-400); RED BLOOD CELL COUNT 3.38 mill/uL (4.7-6.1); RED CELL DISTRIBUTION WIDTH 13.2 % (11.6-14.6)
[2018-05-15 07:54] LABS: CHLORIDE 115 mEq/L (98-107)
[2018-05-15 08:15] LABS: PHOSPHORUS 3.5 mg/dL (2.5-4.9)
[2018-05-15] MEDS: LOSARTAN POTASSIUM 100 MG TABLET PO SCH (10:18)
[2018-05-15] MEDS: ENOXAPARIN 40MG/0.4ML SYR SUBCUT SCH (10:19)
[2018-05-15] MEDS: METOPROLOL TARTRATE 100MG TABLET PO SCH ×2 (10:19→21:00)
[2018-05-15] MEDS: FAMOTIDINE 20MG TABLET PEG SCH (10:19)
[2018-05-15] MEDS: FINASTERIDE 5MG TABLET PO SCH (10:19)
[2018-05-15] MEDS ORDERED: CLONIDINE HCL 0.3MG/24HR PATCH TD SCH (10:30)
[2018-05-15] MEDS: INSULIN GLARGINE UD 100 UNITS/ML SYR SUBCUT SCH ×2 (10:35→22:40)
[2018-05-15] MEDS: DOCUSATE SODIUM SUGAR FREE 100MG/10ML UDC NG SCH ×2 (10:36→18:43)
[2018-05-15] MEDS: CLOPIDOGREL 75MG TABLET PO SCH (10:37)
[2018-05-15] MEDS: ACETAMINOPHEN 325MG TABLET PO PRN (10:37)
[2018-05-15] MEDS: AMOXICILLIN 500 MG CAPSULE PO SCH ×2 (13:55→22:27)
[2018-05-15] MEDS: CHLORTHALIDONE 25MG TABLET PO SCH (13:58)
[2018-05-15] MEDS: ATORVASTATIN CALCIUM 20MG TABLET PO SCH (21:00)
[2018-05-16] VITALS: BP 151/92
[2018-05-16 04:00] VITALS: BP 178/87
[2018-05-16] MEDS: LEVETIRACETAM 250 MG in SODIUM CHLORIDE 0.9% 100 ML IV SCH ×2 (04:00→19:43)
[2018-05-16] MEDS: METOCLOPRAMIDE HCL 10MG/2ML VIAL IV SCH ×5 (05:38→23:48)
[2018-05-16] MEDS: AMOXICILLIN 500 MG CAPSULE PO SCH ×3 (05:38→22:05)
[2018-05-16] MEDS: MINOXIDIL 10MG TABLET PO SCH ×3 (05:39→22:05)
[2018-05-16] MEDS: INSULIN LISPRO 100 UNITS/ML SUBCUT SCH ×4 (06:00→18:00)
[2018-05-16] MEDS: BLOOD SUGAR DIAGNOSTIC STRIP TEST SCH ×4 (06:15→18:25)
[2018-05-16 06:49] LABS: BASOPHILS % 1.2 % (0.0-2.0); EOSINOPHILS % 1.9 % (0.0-5.0); HEMATOCRIT. 31.2 % (42.0-52.0); HEMOGLOBIN. 10.4 g/dL (14.0-18.0); LYMPHOCYTES % 36.1 % (20.0-50.0); MEAN CORPUSCULAR HEMOGLOBIN 29.9 pg (28.0-32.0); MEAN CORPUSCULAR VOLUME 89.7 fL (80.0-94.0); MEAN PLATELET VOLUME 8.1 fl (7.4-10.4); MONOCYTES % 13.5 % (2.0-8.0); NEUTROPHILS % 47.3 % (40.0-76.0); PLATELET 337 x1000/uL (130-400); RED BLOOD CELL COUNT 3.48 mill/uL (4.7-6.1); RED CELL DISTRIBUTION WIDTH 13.3 % (11.6-14.6)
[2018-05-16 07:08] LABS: CHLORIDE 113 mEq/L (98-107)
[2018-05-16 07:20] LABS: PHOSPHORUS 4.3 mg/dL (2.5-4.9)
[2018-05-16 08:00] VITALS: BP 166/95
[2018-05-16] MEDS: FAMOTIDINE 20MG TABLET PEG SCH (08:56)
[2018-05-16] MEDS: DOCUSATE SODIUM SUGAR FREE 100MG/10ML UDC NG SCH ×2 (08:56→17:00)
[2018-05-16] MEDS: FINASTERIDE 5MG TABLET PO SCH (08:57)
[2018-05-16] MEDS: METOPROLOL TARTRATE 100MG TABLET PO SCH ×3 (08:57→22:06)
[2018-05-16] MEDS: LOSARTAN POTASSIUM 100 MG TABLET PO SCH (09:00)
[2018-05-16] MEDS: CHLORTHALIDONE 25MG TABLET PO SCH (09:01)
[2018-05-16] MEDS: INSULIN GLARGINE UD 100 UNITS/ML SYR SUBCUT SCH ×2 (10:34→22:09)
[2018-05-16 12:00] VITALS: BP 159/71
[2018-05-16 16:00] VITALS: BP 167/73
[2018-05-16 20:00] VITALS: BP 101/69
[2018-05-16] MEDS: ATORVASTATIN CALCIUM 20MG TABLET PO SCH (22:04)
[2018-05-17] VITALS: BP 159/72
[2018-05-17] MEDS: BLOOD SUGAR DIAGNOSTIC STRIP TEST SCH ×4 (00:45→17:20)
[2018-05-17] MEDS: INSULIN LISPRO 100 UNITS/ML SUBCUT SCH ×4 (01:00→17:20)
[2018-05-17 04:00] VITALS: BP 163/78
[2018-05-17] MEDS: LEVETIRACETAM 250 MG in SODIUM CHLORIDE 0.9% 100 ML IV SCH ×2 (04:54→16:04)
[2018-05-17] MEDS: METOCLOPRAMIDE HCL 10MG/2ML VIAL IV SCH ×3 (06:07→17:20)
[2018-05-17] MEDS: AMOXICILLIN 500 MG CAPSULE PO SCH ×3 (06:15→20:40)
[2018-05-17] MEDS: METOPROLOL TARTRATE 100MG TABLET PO SCH ×3 (06:15→20:39)
[2018-05-17] MEDS: MINOXIDIL 10MG TABLET PO SCH ×3 (06:16→20:39)
[2018-05-17 08:00] VITALS: BP 148/64
[2018-05-17] MEDS: DOCUSATE SODIUM SUGAR FREE 100MG/10ML UDC NG SCH ×2 (08:29→16:05)
[2018-05-17] MEDS: FAMOTIDINE 20MG TABLET PEG SCH ×2 (09:01→16:05)
[2018-05-17] MEDS: FINASTERIDE 5MG TABLET PO SCH (09:01)
[2018-05-17] MEDS: LOSARTAN POTASSIUM 100 MG TABLET PO SCH (09:01)
[2018-05-17] MEDS: CHLORTHALIDONE 25MG TABLET PO SCH (10:22)
[2018-05-17] MEDS: INSULIN GLARGINE UD 100 UNITS/ML SYR SUBCUT SCH ×2 (10:31→21:00)
[2018-05-17 11:01] LABS: BASOPHILS % 0.7 % (0.0-2.0); EOSINOPHILS % 1.5 % (0.0-5.0); HEMATOCRIT. 32.1 % (42.0-52.0); HEMOGLOBIN. 10.6 g/dL (14.0-18.0); LYMPHOCYTES % 25.6 % (20.0-50.0); MEAN CORPUSCULAR HEMOGLOBIN 29.5 pg (28.0-32.0); MEAN CORPUSCULAR VOLUME 89.4 fL (80.0-94.0); MEAN PLATELET VOLUME 8.1 fl (7.4-10.4); MONOCYTES % 11.3 % (2.0-8.0); NEUTROPHILS % 60.9 % (40.0-76.0); PLATELET 349 x1000/uL (130-400); RED CELL DISTRIBUTION WIDTH 13.3 % (11.6-14.6)
[2018-05-17 11:24] LABS: CHLORIDE 111 mEq/L (98-107)
[2018-05-17 12:00] VITALS: BP 153/76
[2018-05-17] MEDS ORDERED: HYDRALAZINE 10 MG in SODIUM CHLORIDE 0.9% 49.5 ML IV PRN (15:15)
[2018-05-17 16:00] VITALS: BP 158/66
[2018-05-17 20:00] VITALS: BP 196/88
[2018-05-17] MEDS ORDERED: CLOPIDOGREL 75MG TABLET PO SCH (20:30)
[2018-05-17] MEDS: ATORVASTATIN CALCIUM 20MG TABLET PO SCH (20:38)
[2018-05-17] MEDS: CLOPIDOGREL 75MG TABLET PO SCH (21:32)
[2018-05-18] VITALS: BP 132/47
[2018-05-18 04:00] VITALS: BP 138/54
[2018-05-18] MEDS: LEVETIRACETAM 250 MG in SODIUM CHLORIDE 0.9% 100 ML IV SCH ×2 (04:25→23:37)
[2018-05-18] MEDS: AMOXICILLIN 500 MG CAPSULE PO SCH ×3 (05:56→22:00)
[2018-05-18] MEDS: METOPROLOL TARTRATE 100MG TABLET PO SCH ×3 (05:56→22:00)
[2018-05-18] MEDS: ACETAMINOPHEN 325MG TABLET PO PRN (05:57)
[2018-05-18] MEDS: MINOXIDIL 10MG TABLET PO SCH ×3 (05:57→22:00)
[2018-05-18] MEDS: METOCLOPRAMIDE HCL 10MG/2ML VIAL IV SCH ×5 (05:58→23:38)
[2018-05-18] MEDS: INSULIN LISPRO 100 UNITS/ML SUBCUT SCH ×4 (06:25→17:43)
[2018-05-18] MEDS: BLOOD SUGAR DIAGNOSTIC STRIP TEST SCH ×4 (06:26→17:42)
[2018-05-18 07:28] LABS: BASOPHILS % 0.6 % (0.0-2.0); EOSINOPHILS % 1.1 % (0.0-5.0); HEMATOCRIT. 31.2 % (42.0-52.0); HEMOGLOBIN. 10.2 g/dL (14.0-18.0); LYMPHOCYTES % 28.2 % (20.0-50.0); MEAN CORPUSCULAR HEMOGLOBIN 29.7 pg (28.0-32.0); MEAN CORPUSCULAR VOLUME 90.3 fL (80.0-94.0); MEAN PLATELET VOLUME 8.3 fl (7.4-10.4); MONOCYTES % 11.1 % (2.0-8.0); PLATELET 346 x1000/uL (130-400); RED BLOOD CELL COUNT 3.46 mill/uL (4.7-6.1); RED CELL DISTRIBUTION WIDTH 13.3 % (11.6-14.6)
[2018-05-18 08:00] VITALS: BP 140/60
[2018-05-18] MEDS: FINASTERIDE 5MG TABLET PO SCH (09:17)
[2018-05-18] MEDS: LOSARTAN POTASSIUM 100 MG TABLET PO SCH (09:17)
[2018-05-18] MEDS: FAMOTIDINE 20MG TABLET PEG SCH ×2 (09:17→16:01)
[2018-05-18] MEDS: CHLORTHALIDONE 25MG TABLET PO SCH (09:17)
[2018-05-18] MEDS: CLOPIDOGREL 75MG TABLET PO SCH (09:18)
[2018-05-18] MEDS: DOCUSATE SODIUM SUGAR FREE 100MG/10ML UDC NG SCH ×2 (09:18→16:01)
[2018-05-18] MEDS: INSULIN GLARGINE UD 100 UNITS/ML SYR SUBCUT SCH (09:44)
[2018-05-18 12:00] VITALS: BP 145/60
[2018-05-18 16:00] VITALS: BP 142/57
[2018-05-18 20:00] VITALS: BP 130/62
[2018-05-18] MEDS: ATORVASTATIN CALCIUM 20MG TABLET PO SCH (21:00)
[2018-05-18] MEDS: LORAZEPAM 2MG/ML CPJ IV PRN (23:38)
[2018-05-19] VITALS: BP 125/45
[2018-05-19 04:00] VITALS: BP 126/43
[2018-05-19] MEDS: INSULIN GLARGINE UD 100 UNITS/ML SYR SUBCUT SCH ×3 (05:34→23:32)
[2018-05-19] MEDS: AMOXICILLIN 500 MG CAPSULE PO SCH ×3 (06:00→21:45)
[2018-05-19] MEDS: INSULIN LISPRO 100 UNITS/ML SUBCUT SCH ×5 (06:00→23:32)
[2018-05-19] MEDS: METOPROLOL TARTRATE 100MG TABLET PO SCH ×3 (06:00→21:45)
[2018-05-19] MEDS: MINOXIDIL 10MG TABLET PO SCH ×3 (06:00→21:45)
[2018-05-19] MEDS: METOCLOPRAMIDE HCL 10MG/2ML VIAL IV SCH ×4 (06:33→23:21)
[2018-05-19] MEDS: BLOOD SUGAR DIAGNOSTIC STRIP TEST SCH ×5 (06:34→23:33)
[2018-05-19 08:00] VITALS: BP 150/61
[2018-05-19] MEDS: LEVETIRACETAM 250 MG in SODIUM CHLORIDE 0.9% 100 ML IV SCH ×2 (09:15→21:45)
[2018-05-19] MEDS: DOCUSATE SODIUM SUGAR FREE 100MG/10ML UDC NG SCH ×2 (09:16→17:00)
[2018-05-19] MEDS: LOSARTAN POTASSIUM 100 MG TABLET PO SCH (09:16)
[2018-05-19] MEDS: FINASTERIDE 5MG TABLET PO SCH (09:16)
[2018-05-19] MEDS: FAMOTIDINE 20MG TABLET PEG SCH ×2 (09:16→17:05)
[2018-05-19] MEDS: CLOPIDOGREL 75MG TABLET PO SCH (09:16)
[2018-05-19] MEDS: CHLORTHALIDONE 25MG TABLET PO SCH (09:16)
[2018-05-19 12:00] VITALS: BP 129/60
[2018-05-19 16:00] VITALS: BP 85/45
[2018-05-19 20:00] VITALS: BP 127/57
[2018-05-19] MEDS: LORAZEPAM 2MG/ML CPJ IV PRN (21:46)
[2018-05-20] VITALS: BP 121/54
[2018-05-20 04:00] VITALS: BP 110/56
[2018-05-20] MEDS: MINOXIDIL 10MG TABLET PO SCH ×3 (05:03→23:53)
[2018-05-20] MEDS: INSULIN LISPRO 100 UNITS/ML SUBCUT SCH ×3 (05:08→16:47)
[2018-05-20] MEDS: METOPROLOL TARTRATE 100MG TABLET PO SCH ×3 (05:11→23:53)
[2018-05-20] MEDS: AMOXICILLIN 500 MG CAPSULE PO SCH ×2 (05:11→13:13)
[2018-05-20] MEDS: METOCLOPRAMIDE HCL 10MG/2ML VIAL IV SCH ×3 (05:11→16:46)
[2018-05-20] MEDS: BLOOD SUGAR DIAGNOSTIC STRIP TEST SCH ×3 (05:18→16:47)
[2018-05-20] MEDS: LORAZEPAM 2MG/ML CPJ IV PRN ×3 (06:39→20:23)
[2018-05-20 08:00] VITALS: BP 144/65
[2018-05-20 10:04] LABS: BASOPHILS % 0.5 % (0.0-2.0); EOSINOPHILS % 1.3 % (0.0-5.0); HEMATOCRIT. 32.2 % (42.0-52.0); HEMOGLOBIN. 10.7 g/dL (14.0-18.0); LYMPHOCYTES % 30.4 % (20.0-50.0); MEAN CORPUSCULAR HEMOGLOBIN 29.7 pg (28.0-32.0); MEAN CORPUSCULAR VOLUME 89.3 fL (80.0-94.0); MEAN PLATELET VOLUME 8.2 fl (7.4-10.4); MONOCYTES % 12.9 % (2.0-8.0); NEUTROPHILS % 54.9 % (40.0-76.0); PLATELET 299 x1000/uL (130-400); RED BLOOD CELL COUNT 3.61 mill/uL (4.7-6.1); RED CELL DISTRIBUTION WIDTH 13.2 % (11.6-14.6)
[2018-05-20] MEDS: LEVETIRACETAM 250 MG in SODIUM CHLORIDE 0.9% 100 ML IV SCH ×2 (10:08→20:23)
[2018-05-20] MEDS: DOCUSATE SODIUM SUGAR FREE 100MG/10ML UDC NG SCH ×2 (10:08→16:46)
[2018-05-20] MEDS: CHLORTHALIDONE 25MG TABLET PO SCH (10:08)
[2018-05-20] MEDS: LOSARTAN POTASSIUM 100 MG TABLET PO SCH (10:08)
[2018-05-20] MEDS: CLOPIDOGREL 75MG TABLET PO SCH (10:09)
[2018-05-20] MEDS: FINASTERIDE 5MG TABLET PO SCH (10:09)
[2018-05-20] MEDS: FAMOTIDINE 20MG TABLET PEG SCH ×2 (10:11→16:46)
[2018-05-20 10:26] LABS: CHLORIDE 111 mEq/L (98-107)
[2018-05-20 10:38] LABS: PHOSPHORUS 3.9 mg/dL (2.5-4.9)
[2018-05-20] MEDS: INSULIN GLARGINE UD 100 UNITS/ML SYR SUBCUT SCH ×2 (11:18→23:57)
[2018-05-20 12:00] VITALS: BP 144/61
[2018-05-20 16:00] VITALS: BP 122/59
[2018-05-20 20:00] VITALS: BP 129/60
[2018-05-21] VITALS: BP 146/63
[2018-05-21] MEDS: METOCLOPRAMIDE HCL 10MG/2ML VIAL IV SCH ×4 (00:13→18:27)
[2018-05-21] MEDS: BLOOD SUGAR DIAGNOSTIC STRIP TEST SCH ×2 (00:16→06:45)
[2018-05-21] MEDS: INSULIN LISPRO 100 UNITS/ML SUBCUT SCH ×3 (00:19→12:00)
[2018-05-21] MEDS: LORAZEPAM 2MG/ML CPJ IV PRN ×3 (03:03→21:24)
[2018-05-21 04:00] VITALS: BP 144/63
[2018-05-21 06:00] VITALS: BP 144/63
[2018-05-21] MEDS ORDERED: DEXT 5%/0.45% NACL KCL 20MEQ/L 1,000 ML IV SCH (06:30)
[2018-05-21] MEDS: METOPROLOL TARTRATE 100MG TABLET PO SCH ×4 (07:13→21:25)
[2018-05-21] MEDS: MINOXIDIL 10MG TABLET PO SCH ×4 (07:13→21:26)
[2018-05-21 08:00] VITALS: BP 142/58
[2018-05-21] MEDS ORDERED: CEFAZOLIN 1000MG PREMIX 50 ML IV SCH (08:00)
[2018-05-21] MEDS: FAMOTIDINE 20MG TABLET PEG SCH ×2 (09:00→18:24)
[2018-05-21] MEDS: LOSARTAN POTASSIUM 100 MG TABLET PO SCH (09:00)
[2018-05-21] MEDS: CHLORTHALIDONE 25MG TABLET PO SCH (09:00)
[2018-05-21] MEDS: DOCUSATE SODIUM SUGAR FREE 100MG/10ML UDC NG SCH ×2 (09:00→18:24)
[2018-05-21] MEDS: FINASTERIDE 5MG TABLET PO SCH (09:00)
[2018-05-21] MEDS: LEVETIRACETAM 250 MG in SODIUM CHLORIDE 0.9% 100 ML IV SCH ×2 (10:11→20:38)
[2018-05-21 11:06] LABS: HEMATOCRIT. 32.5 % (42.0-52.0); HEMOGLOBIN. 10.9 g/dL (14.0-18.0); MEAN CORPUSCULAR HEMOGLOBIN 30.1 pg (28.0-32.0); MEAN CORPUSCULAR VOLUME 89.5 fL (80.0-94.0); MEAN PLATELET VOLUME 8.5 fl (7.4-10.4); PLATELET 327 x1000/uL (130-400); RED BLOOD CELL COUNT 3.63 mill/uL (4.7-6.1); RED CELL DISTRIBUTION WIDTH 13.1 % (11.6-14.6)
[2018-05-21 11:13] LABS: INR 1.1; PARTIAL THROMBOPLASTIN TIME 29.2 sec (23.4-31.0); PROTHROMBIN TIME 10.7 sec (9.1-11.1)
[2018-05-21 11:30] LABS: CHLORIDE 110 mEq/L (98-107)
[2018-05-21 11:36] LABS: PHOSPHORUS 5.3 mg/dL (2.5-4.9)
[2018-05-21] MEDS ORDERED: FENTANYL CITRATE/PF 50MCG/ML 2ML VIAL ONE (12:10)
[2018-05-21] MEDS ORDERED: MIDAZOLAM HCL 5 MG/5 ML VIAL ONE (12:10)
[2018-05-21] MEDS ORDERED: FENTANYL CITRATE/PF 50MCG/ML 2ML VIAL IV ONE (12:20)
[2018-05-21] MEDS ORDERED: MIDAZOLAM HCL 5 MG/5 ML VIAL IV ONE (12:24)
[2018-05-21] MEDS ORDERED: CEFAZOLIN SODIUM 1000MG/VIAL IV SCH (14:00)
[2018-05-21 14:29] LABS: PLATELET ESTIMATE NORMAL
[2018-05-21] MEDS ORDERED: SODIUM CHLORIDE 0.9% 10ML VIAL ONE (15:15)
[2018-05-21] MEDS ORDERED: SIMETHICONE 40 MG/0.6 ML 30ML ONE (15:15)
[2018-05-21 16:00] VITALS: BP 126/66
[2018-05-21] MEDS: METRONIDAZOLE 500 MG PREMIX 100 ML IV SCH ×2 (17:57→21:26)
[2018-05-21 20:00] VITALS: BP 155/63
[2018-05-21] MEDS: POTASSIUM CHLORIDE INJ 10 MEQ in DEXTROSE 5% WATER 1,000 ML IV SCH (20:38)
[2018-05-21] MEDS: CEFAZOLIN 1000MG PREMIX 50 ML IV SCH (20:38)
[2018-05-21] MEDS ORDERED: DEXTROSE 50% WATER 50ML SYRINGE IV PRN (21:45)
[2018-05-21] MEDS: INSULIN GLARGINE UD 100 UNITS/ML SYR SUBCUT SCH (21:46)
[2018-05-21] MEDS: HYDROMORPHONE HCL/PF 2MG/ML CPJ IV PRN (22:05)
[2018-05-22] VITALS: BP 124/63
[2018-05-22] MEDS: METOCLOPRAMIDE HCL 10MG/2ML VIAL IV SCH ×4 (00:45→18:30)
[2018-05-22] MEDS: CEFAZOLIN 1000MG PREMIX 50 ML IV SCH ×3 (00:46→18:30)
[2018-05-22] MEDS: POTASSIUM CHLORIDE INJ 10 MEQ in DEXTROSE 5% WATER 1,000 ML IV SCH ×2 (02:06→14:57)
[2018-05-22] MEDS: HYDROMORPHONE HCL/PF 2MG/ML CPJ IV PRN (03:23)
[2018-05-22 04:00] VITALS: BP 115/59
[2018-05-22] MEDS: MINOXIDIL 10MG TABLET PO SCH ×3 (05:52→22:10)
[2018-05-22] MEDS: METOPROLOL TARTRATE 100MG TABLET PO SCH ×3 (05:52→22:10)
[2018-05-22] MEDS: METRONIDAZOLE 500 MG PREMIX 100 ML IV SCH ×3 (05:53→22:11)
[2018-05-22] MEDS: INSULIN LISPRO 100 UNITS/ML SUBCUT SCH ×4 (06:00→18:00)
[2018-05-22] MEDS: BLOOD SUGAR DIAGNOSTIC STRIP TEST SCH ×4 (06:15→18:00)
[2018-05-22 06:54] LABS: BASOPHILS % 0.4 % (0.0-2.0); EOSINOPHILS % 1.1 % (0.0-5.0); HEMATOCRIT. 30.1 % (42.0-52.0); HEMOGLOBIN. 10.1 g/dL (14.0-18.0); MEAN CORPUSCULAR HEMOGLOBIN 30.1 pg (28.0-32.0); MEAN CORPUSCULAR VOLUME 89.8 fL (80.0-94.0); MEAN PLATELET VOLUME 8.5 fl (7.4-10.4); MONOCYTES % 12.9 % (2.0-8.0); NEUTROPHILS % 58.6 % (40.0-76.0); PLATELET 279 x1000/uL (130-400); RED BLOOD CELL COUNT 3.35 mill/uL (4.7-6.1); RED CELL DISTRIBUTION WIDTH 13.6 % (11.6-14.6)
[2018-05-22 07:41] LABS: CHLORIDE 112 mEq/L (98-107)
[2018-05-22 07:48] LABS: PHOSPHORUS 4.5 mg/dL (2.5-4.9)
[2018-05-22 08:39] VITALS: BP 125/63
[2018-05-22] MEDS ORDERED: CLONIDINE HCL 0.1MG/24HR PATCH TD SCH (09:00)
[2018-05-22] MEDS: DOCUSATE SODIUM SUGAR FREE 100MG/10ML UDC NG SCH ×2 (09:41→17:51)
[2018-05-22] MEDS: FAMOTIDINE 20MG TABLET PEG SCH ×2 (09:43→17:51)
[2018-05-22] MEDS: CHLORTHALIDONE 25MG TABLET PO SCH (09:43)
[2018-05-22] MEDS: LOSARTAN POTASSIUM 100 MG TABLET PO SCH (09:43)
[2018-05-22] MEDS: LORAZEPAM 2MG/ML CPJ IV PRN ×2 (10:06→23:44)
[2018-05-22] MEDS: INSULIN GLARGINE UD 100 UNITS/ML SYR SUBCUT SCH ×2 (10:30→22:12)
[2018-05-22 11:52] VITALS: BP 132/63
[2018-05-22] MEDS: LEVETIRACETAM 250 MG in SODIUM CHLORIDE 0.9% 100 ML IV SCH ×2 (12:26→22:11)
[2018-05-22 16:08] VITALS: BP 138/68
[2018-05-22 20:00] VITALS: BP 125/77
[2018-05-22] MEDS ORDERED: ACETAMINOPHEN 650MG/20.3ML UDC GT PRN (22:00)
[2018-05-23] VITALS: BP 114/47
[2018-05-23] MEDS: INSULIN LISPRO 100 UNITS/ML SUBCUT SCH ×4 (00:02→18:24)
[2018-05-23] MEDS: BLOOD SUGAR DIAGNOSTIC STRIP TEST SCH ×4 (00:04→18:15)
[2018-05-23] MEDS: METOCLOPRAMIDE HCL 10MG/2ML VIAL IV SCH ×4 (00:06→18:22)
[2018-05-23 04:00] VITALS: BP 129/53
[2018-05-23] MEDS: CEFAZOLIN 1000MG PREMIX 50 ML IV SCH ×3 (04:45→18:22)
[2018-05-23] MEDS: POTASSIUM CHLORIDE INJ 10 MEQ in DEXTROSE 5% WATER 1,000 ML IV SCH ×4 (04:49→21:15)
[2018-05-23 06:04] LABS: CHLORIDE 108 mEq/L (98-107)
[2018-05-23 06:26] LABS: BASOPHILS % 0.6 % (0.0-2.0); EOSINOPHILS % 1.8 % (0.0-5.0); HEMATOCRIT. 32.8 % (42.0-52.0); HEMOGLOBIN. 10.8 g/dL (14.0-18.0); LYMPHOCYTES % 35.1 % (20.0-50.0); MEAN CORPUSCULAR HEMOGLOBIN 29.4 pg (28.0-32.0); MEAN CORPUSCULAR VOLUME 89.2 fL (80.0-94.0); MEAN PLATELET VOLUME 8.7 fl (7.4-10.4); NEUTROPHILS % 50.5 % (40.0-76.0); PLATELET 293 x1000/uL (130-400); RED BLOOD CELL COUNT 3.67 mill/uL (4.7-6.1); RED CELL DISTRIBUTION WIDTH 13.1 % (11.6-14.6)
[2018-05-23] MEDS: METOPROLOL TARTRATE 100MG TABLET PO SCH ×2 (06:27→13:02)
[2018-05-23] MEDS: MINOXIDIL 10MG TABLET PO SCH ×2 (06:27→13:03)
[2018-05-23] MEDS: METRONIDAZOLE 500 MG PREMIX 100 ML IV SCH ×2 (06:28→13:03)
[2018-05-23 08:00] VITALS: BP 119/60
[2018-05-23] MEDS: LEVETIRACETAM 250 MG in SODIUM CHLORIDE 0.9% 100 ML IV SCH ×2 (08:52→21:23)
[2018-05-23] MEDS: CHLORTHALIDONE 25MG TABLET PO SCH (09:00)
[2018-05-23] MEDS: FAMOTIDINE 20MG TABLET PEG SCH ×2 (09:00→18:22)
[2018-05-23] MEDS: LOSARTAN POTASSIUM 100 MG TABLET PO SCH (09:00)
[2018-05-23] MEDS: DOCUSATE SODIUM SUGAR FREE 100MG/10ML UDC NG SCH (09:01)
[2018-05-23] MEDS: LORAZEPAM 2MG/ML CPJ IV PRN (09:06)
[2018-05-23] MEDS: INSULIN GLARGINE UD 100 UNITS/ML SYR SUBCUT SCH (09:58)
[2018-05-23 12:00] VITALS: BP 109/66
[2018-05-23 16:00] VITALS: BP 106/45
[2018-05-23 20:00] VITALS: BP 103/46
[2018-05-24] VITALS: BP 105/72
[2018-05-24] MEDS: METOCLOPRAMIDE HCL 10MG/2ML VIAL IV SCH ×4 (00:25→17:05)
[2018-05-24] MEDS: METRONIDAZOLE 500 MG PREMIX 100 ML IV SCH ×3 (00:25→13:28)
[2018-05-24] MEDS: MINOXIDIL 10MG TABLET PO SCH ×3 (00:27→13:29)
[2018-05-24] MEDS: METOPROLOL TARTRATE 100MG TABLET PO SCH ×3 (00:27→13:29)
[2018-05-24] MEDS: INSULIN GLARGINE UD 100 UNITS/ML SYR SUBCUT SCH ×2 (00:43→10:11)
[2018-05-24] MEDS: BLOOD SUGAR DIAGNOSTIC STRIP TEST SCH ×4 (00:45→17:06)
[2018-05-24] MEDS: CEFAZOLIN 1000MG PREMIX 50 ML IV SCH ×3 (02:51→17:05)
[2018-05-24 04:00] VITALS: BP 127/54
[2018-05-24] MEDS: INSULIN LISPRO 100 UNITS/ML SUBCUT SCH ×4 (06:37→17:06)
[2018-05-24 07:38] LABS: BASOPHILS % 0.5 % (0.0-2.0); EOSINOPHILS % 1.8 % (0.0-5.0); HEMATOCRIT. 28.4 % (42.0-52.0); HEMOGLOBIN. 9.8 g/dL (14.0-18.0); LYMPHOCYTES % 43.7 % (20.0-50.0); MEAN CORPUSCULAR HEMOGLOBIN 30.1 pg (28.0-32.0); MEAN CORPUSCULAR VOLUME 87.5 fL (80.0-94.0); MEAN PLATELET VOLUME 8.5 fl (7.4-10.4); MONOCYTES % 13.2 % (2.0-8.0); NEUTROPHILS % 40.8 % (40.0-76.0); PLATELET 273 x1000/uL (130-400); RED BLOOD CELL COUNT 3.24 mill/uL (4.7-6.1); RED CELL DISTRIBUTION WIDTH 13.1 % (11.6-14.6)
[2018-05-24 08:00] VITALS: BP 135/54
[2018-05-24] MEDS: LEVETIRACETAM 250 MG in SODIUM CHLORIDE 0.9% 100 ML IV SCH (10:09)
[2018-05-24] MEDS: LOSARTAN POTASSIUM 100 MG TABLET PO SCH (10:10)
[2018-05-24] MEDS: CHLORTHALIDONE 25MG TABLET PO SCH (10:10)
[2018-05-24] MEDS: FAMOTIDINE 20MG TABLET PEG SCH ×2 (10:10→17:05)
[2018-05-24 12:00] VITALS: BP 134/50
[2018-05-24] MEDS: POTASSIUM CHLORIDE INJ 10 MEQ in DEXTROSE 5% WATER 1,000 ML IV SCH (13:28)
[2018-05-24 15:44] VITALS: BP 135/84
[2018-05-24 20:00] VITALS: BP 131/65
== END 2018-05-24 20:35 | DRG 45 ==
LOC: ER 20:49 → 7WST 04-20 01:48 → EDBEDREQTM 04-20 01:50 → EDBEDREQ 04-20 01:50 → ENRESERV 04-20 03:05 → ER 04-20 04:13 → MICUSO 04-20 11:05 → 5EST 05-02 23:20 → 6EST 05-16 12:17
PROVIDERS: ADMIT Internal Medicine; ATTEND Internal Medicine
PROC: 4A00X4Z Measurement of Central Nervous Electrical Activity, External Approach (ICD-10-PCS; principal; 2018-04-22)
PROC: 0DH63UZ Insertion of Feeding Device into Stomach, Percutaneous Approach (ICD-10-PCS; 2018-05-10)
PROC: 0DB68ZX Excision of Stomach, Via Natural or Artificial Opening Endoscopic, Diagnostic (ICD-10-PCS; 2018-05-10)
PROC: 0DH63UZ Insertion of Feeding Device into Stomach, Percutaneous Approach (ICD-10-PCS; 2018-05-21)
PROC: 0DB98ZX Excision of Duodenum, Via Natural or Artificial Opening Endoscopic, Diagnostic (ICD-10-PCS; 2018-05-21)
DX: I63.81 Other cerebral infarction due to occlusion or stenosis of small artery (principal); G93.41 Metabolic encephalopathy; N17.9 Acute kidney failure, unspecified; G81.91 Hemiplegia, unspecified affecting right dominant side; R13.10 Dysphagia, unspecified; N18.3 Chronic kidney disease, stage 3 (moderate); E87.0 Hyperosmolality and hypernatremia; E11.22 Type 2 diabetes mellitus with diabetic chronic kidney disease; E11.319 Type 2 diabetes mellitus with unspecified diabetic retinopathy without macular edema; E44.1 Mild protein-calorie malnutrition; R47.01 Aphasia; H53.469 Homonymous bilateral field defects, unspecified side; E11.65 Type 2 diabetes mellitus with hyperglycemia; D64.9 Anemia, unspecified; E78.5 Hyperlipidemia, unspecified; I12.9 Hypertensive chronic kidney disease with stage 1 through stage 4 chronic kidney disease, or unspecified chronic kidney disease; E83.39 Other disorders of phosphorus metabolism; E87.6 Hypokalemia; E87.8 Other disorders of electrolyte and fluid balance, not elsewhere classified; H40.9 Unspecified glaucoma; H54.7 Unspecified visual loss; K20.9 Esophagitis, unspecified; K29.60 Other gastritis without bleeding; K29.80 Duodenitis without bleeding; K44.9 Diaphragmatic hernia without obstruction or gangrene; M47.816 Spondylosis without myelopathy or radiculopathy, lumbar region; M54.12 Radiculopathy, cervical region; R33.8 Other retention of urine; N13.8 Other obstructive and reflux uropathy; N40.1 Benign prostatic hyperplasia with lower urinary tract symptoms; Z78.1 Physical restraint status; Z86.73 Personal history of transient ischemic attack (TIA), and cerebral infarction without residual deficits; Z91.14 Patient's other noncompliance with medication regimen; Z91.19 Patient's noncompliance with other medical treatment and regimen; Z68.31 Body mass index [BMI] 31.0-31.9, adult; Z79.1 Long term (current) use of non-steroidal anti-inflammatories (NSAID); Z79.899 Other long term (current) drug therapy; Z79.02 Long term (current) use of antithrombotics/antiplatelets; Z79.84 Long term (current) use of oral hypoglycemic drugs; Z82.49 Family history of ischemic heart disease and other diseases of the circulatory system; Z83.3 Family history of diabetes mellitus
CPT/HCPCS: 36415; 36600; 70544; 70551; 70553; 71045; 74176; 76770; 80048; 80061; 80076; 80305; 80307; 80329; 82140; 82375; 82570; 82600; 82607; 82746; 82805; 82962; 83036; 83520; 83735; 84100; 84134; 84156; 84300; 84439; 84443; 84481; 84484; 87077; 87186; 88305; 88312; 88313; 92610; 93005; 93306; 93880; 93970; 94640; 96361; 96365; 96375; 97110; 97112; 97163; 97164; 97167; 97530; 97535; 99285; A4216; C1893; C9113; G0482; J0360; J0690; J0696; J1170; J1200; J1630; J1650; J1815; J1953; J2060; J2250; J2270; J2765; J3010; J3475; J3480; J3490; J7030; J7040; J7050; J7060; J7070; J7620; A4315